=== PATIENT | male | born 2000 | race Two or more races ===

== ENCOUNTER 2020-05-14 05:38 | Emergency (ER) | payer OTHER, SELFPAY ==
--- NOTE | 2020-05-14 | CT_ITS ---
EXAMINATION: CT ABDOMEN AND PELVIS WITH CONTRAST CLINICAL INFORMATION: Pain. Recent appendectomy, 9 days ago, excision on left. Assess for infection. COMPARISON: Report CT abdomen and pelvis 05/04/2020, images unavailable. TECHNIQUE: Multidetector volumetric imaging was performed from the superior aspect of the liver through the pubic symphysis following administration of 85 mL Optiray 320 intravenous contrast. Sagittal and coronal reformatted images were obtained on the technologist workstation. No oral contrast. DOSE LOWERING TECHNIQUES: This CT examination was performed using dose optimization techniques as appropriate, variously including the following: *Automated exposure control *Adjustment of mA and/or kV according to patient size (this includes techniques or standardized protocols for targeted exams where dose is matched to indication/reason for exam; i.e. extremities or head) *Use of iterative reconstruction technique DLP: 749 mGy-cm FINDINGS: LUNG BASES: The visualized lung bases are unremarkable. LIVER, GALLBLADDER, AND BILIARY TREE: The liver is normal in size, shape, and attenuation. No focal hepatic lesion or biliary ductal dilatation is present. The gallbladder is unremarkable with no evidence of radiopaque gallstones, gallbladder wall thickening, or obvious pericholecystic inflammatory changes. PANCREAS: Unremarkable. SPLEEN: Unremarkable. ADRENAL GLANDS: Unremarkable. KIDNEYS AND URETERS: The kidneys are normal in size, shape, and attenuation. No hydronephrosis, hydroureter, or calculi seen. No perinephric stranding. BLADDER: Unremarkable. GASTROINTESTINAL TRACT: Patient is status post recent appendectomy. There is no bowel obstruction or inflammatory changes in the bowel or mesentery. No abdominal or pelvic ascites or intraperitoneal fluid collection. ABDOMINAL WALL: There is a heterogeneous collection involving the left anterior abdominal wall just below level of the umbilicus and extending into the subcutaneous space. Overall dimensions are approximately 4.4 x 5.2 x 4.8 cm. There are some punctate gas bubbles within the collection. The margins are regular, no mature surrounding wall. There is induration and stranding in the subcutaneous soft tissues and mild skin thickening. No hernia. LYMPH NODES: No lymphadenopathy. VASCULAR: Unremarkable. PELVIC VISCERA: Unremarkable. OSSEOUS STRUCTURES: Unremarkable. IMPRESSION: 1. Heterogeneous collection involving the left anterior abdominal wall and extending into the subcutaneous space measuring 4.4 x 5.2 x 4.8 cm with some internal punctate gas bubbles. This may represent abscess or infected hematoma. No intraperitoneal extension. 2. Status post recent appendectomy. No bowel obstruction or inflammatory changes in bowel or mesentery. No ascites or intraperitoneal fluid collection.
[2020-05-14 05:40] VITALS: BP 107/80; PULSE 123; RESP 20; TEMP 38.2; O2SAT 95; BMI 33.0
[2020-05-14 05:50] VITALS: BP 107/80; PULSE 128; RESP 20; TEMP 38.2; O2SAT 96; BMI 33.0
--- NOTE | 2020-05-14 05:55 | ECG_ITS ---
Test Reason : SEPSIS WORKUP Blood Pressure : / mmHG Vent. Rate : 111 BPM Atrial Rate : 111 BPM P-R Int : 114 ms QRS Dur : 094 ms QT Int : 304 ms P-R-T Axes : 062 057 019 degrees QTc Int : 413 ms Sinus tachycardia Otherwise normal ECG No previous ECGs available Referred By: Fadi Shetty Electronically Signed By:SMILEY MARTINEZ
--- NOTE | 2020-05-14 06:00 | ED.ABDPAIN ---
HPI - Abdominal Pain General Chief Complaint: Abdominal Pain <Fadi Shetty MD - Last Filed: 05/14/20 07:10> Stated Complaint: POST SURGERY ABD PAIN <Fadi Shetty MD - Last Filed: 05/14/20 07:10> Time Seen by Provider: 05/14/20 05:55 <Fadi Shetty MD - Last Filed: 05/14/20 07:10> Source: patient <Fadi Shetty MD - Last Filed: 05/14/20 07:10> Mode of arrival: ambulatory <Fadi Shetty MD - Last Filed: 05/14/20 07:10> Limitations: no limitations <Fadi Shetty MD - Last Filed: 05/14/20 07:10> History of Present Illness HPI narrative: Patient had laproscopic appendectomy, now with abdominal swelling and pain <Fadi Shetty MD - Last Filed: 05/14/20 07:10> MD elicited complaint: abdominal pain <Fadi Shetty MD - Last Filed: 05/14/20 07:10> Onset (ago): day(s) <Fadi Shetty MD - Last Filed: 05/14/20 07:10> Pain Consistency: constant <Fadi Shetty MD - Last Filed: 05/14/20 07:10> Location: LLQ <Fadi Shetty MD - Last Filed: 05/14/20 07:10> Severity: severe <Fadi Shetty MD - Last Filed: 05/14/20 07:10> Quality: stabbing <Fadi Shetty MD - Last Filed: 05/14/20 07:10> Associated symptoms: nausea, fever and chills <Fadi Shetty MD - Last Filed: 05/14/20 07:10> Related Data Home Medications: Previous Rx's Medication Instructions Recorded cephalexin 500 mg PO Q8H 7 Days #21 cap 05/14/20 doxycycline hyclate 100 mg PO BID 10 Days #20 cap 05/14/20 hydrocodone-acetaminophen 1 tab PO Q6H PRN #14 tab 05/14/20 ondansetron 4 mg PO Q8H PRN 5 Days #20 tab 05/14/20 <Fadi Shetty MD - Last Filed: 05/14/20 07:10> Allergies/Adverse Reactions: Allergies Allergy/AdvReac Type Severity Reaction Status Date / Time No Known Allergies Allergy Unverified 04/30/20 16:47 <Fadi Shetty MD - Last Filed: 05/14/20 07:10> Review of Systems Review of Systems Yes all other systems are reviewed and are negative <Fadi Shetty MD - Last Filed: 05/14/20 07:10> Physical Exam Vital Signs and I&O and Narrative: Vital Signs and I&O: Vital Signs Temp 99.3 F 05/14/20 07:31 Pulse 87 05/14/20 10:07 Resp 16 05/14/20 10:07 BP 124/68 05/14/20 10:07 Pulse Ox 98 05/14/20 10:07 Intake & Output 05/13/20 05/14/20 05/14/20 18:59 06:59 18:59 Intake Total 3098.15 / 3098.15 Balance 3098.15 / 3098.15 Weight 101.605 kg Intake: Intake, IV Amoun t 3098.15 / 3098.15 0.9 % Sodium C hloride 3,048.15 3048.15 / 3048.15 ml @ 3048.15 m ls/hr IV .Q1H ONE Rx#:[id number] Piperacillin S odium/Tazobactam 50 / 50 3.375 gm In 0. 9 % Sodium Chloride 50 ml @ 100 mls/hr IV ONCE ONE Rx#:[id number] Body Mass Index 33.0 <Fadi Shetty MD - Last Filed: 05/14/20 07:10> Vital Signs and I&O: Vital Signs Temp 99.3 F 05/14/20 07:31 Pulse 87 05/14/20 10:07 Resp 16 05/14/20 10:07 BP 124/68 05/14/20 10:07 Pulse Ox 98 05/14/20 10:07 Intake & Output 05/13/20 05/14/20 05/14/20 18:59 06:59 18:59 Intake Total 3098.15 / 3098.15 Balance 3098.15 / 3098.15 Weight 101.605 kg Intake: Intake, IV Amoun t 3098.15 / 3098.15 0.9 % Sodium C hloride 3,048.15 3048.15 / 3048.15 ml @ 3048.15 m ls/hr IV .Q1H ONE Rx#:[id number] Piperacillin S odium/Tazobactam 50 / 50 3.375 gm In 0. 9 % Sodium Chloride 50 ml @ 100 mls/hr IV ONCE ONE Rx#:[id number] Body Mass Index 33.0 <Sandra Yusuf DO - Last Filed: 05/14/20 12:03> Const: General: cooperative <Fadi Shetty MD - Last Filed: 05/14/20 07:10> Nutritional Appearance: obese <Fadi Shetty MD - Last Filed: 05/14/20 07:10> Orientation/consciousness: patient oriented x3 <Fadi Shetty MD - Last Filed: 05/14/20 07:10> Limitations: no limitations <Fadi Shtety MD - Last Filed: 05/14/20 07:10> HENMT: Head: Yes normal to inspection <Fadi Shetty MD - Last Filed: 05/14/20 07:10> Ears: external ears normal <Fadi Shetty MD - Last Filed: 05/14/20 07:10> General nose exam: Normal external nose present <Fadi Shetty MD - Last Filed: 05/14/20 07:10> Mouth: Normal oral and palatal mucosa present <Fadi Shetty MD - Last Filed: 05/14/20 07:10> Neck: Neck: Yes normal visual inspection and Yes full ROM <Fadi Shetty MD - Last Filed: 05/14/20 07:10> Chest: Chest palpation & inspection: normal inspection of the chest <Fadi Shetty MD - Last Filed: 05/14/20 07:10> Resp: Effort & Inspection: normal respiratory effort <Fadi Shetty MD - Last Filed: 05/14/20 07:10> Auscultation: clear to auscultation bilaterally <Fadi Shetty MD - Last Filed: 05/14/20 07:10> Cardio: Rate: tachycardic <Fadi Shetty MD - Last Filed: 05/14/20 07:10> Heart sounds: S1 normal heart sound present and S2 normal heart sound present <Fadi Shetty MD - Last Filed: 05/14/20 07:10> GI: Inspection: Yes other (swelling in the left lower quadrant with erythema) <Fadi Shetty MD - Last Filed: 05/14/20 07:10> Palpation (GI): Firmness to palpation present (GI) (firm mass left lower with extreme tenderness) <Fadi Shetty MD - Last Filed: 05/14/20 07:10> : General: Yes no CVA tenderness <Fadi Shetty MD - Last Filed: 05/14/20 07:10> Back/Spine/Pelvis: Back: no CVA tenderness <Fadi Shetty MD - Last Filed: 05/14/20 07:10> Skin: Other: slight erythema left lower quadrant <Fadi Shetty MD - Last Filed: 05/14/20 07:10> Neuro: General: patient oriented x3 <Fadi Shetty MD - Last Filed: 05/14/20 07:10> Motor exam (neuro): 5/5 motor strength present throughout <Fadi Shetty MD - Last Filed: 05/14/20 07:10> Extrem: General: Yes normal to inspection <Fadi Shetty MD - Last Filed: 05/14/20 07:10> Psych: Mental Status: mental status grossly normal <Fadi Shetty MD - Last Filed: 05/14/20 07:10> Course Course Hospital Course: sign out received pending CT scan and surgery evaluation by Dr. Oneill <Fadi Shetty MD - Last Filed: 05/14/20 07:10> Reevaluation(s) Reevaluation #1: Discussed with Dr. Wright will come and see patient <Fadi Shetty MD - Last Filed: 05/14/20 07:10> I/D at bedside per Dr. Sarah araujo to send home start on antibiotics <Sandra Yusuf DO - Last Filed: 05/14/20 12:03> Time: 07:09 <Fadi Shetty MD - Last Filed: 05/14/20 07:10> Reevaluation #2: signed out to Dr. Yusuf <Fadi Shetty MD - Last Filed: 05/14/20 07:10> Time: 07:09 <Fadi Shetty MD - Last Filed: 05/14/20 07:10> MDM - Abdominal Pain Lab Data Result diagrams: : 05/14/20 06:17 05/14/20 06:17 <Fadi Shetty MD - Last Filed: 05/14/20 07:10> Labs: Lab Results 05/14/20 05/14/20 05/14/20 Range/Units 06:17 06:17 06:17 WBC 12.6 H (4.8-10.8) X10*3/uL RBC 5.72 (4.60-5.80) X10*6/uL Hgb 14.9 (14.0-18.0) g/dl Hct 44.9 (42-52) % MCV 78.5 L (80-98) fL MCH 26.0 L (27.0-33.0) pg MCHC 33.2 (31.0-36.0) g/dl RDW 13.0 (11.0-16.0) % Plt Count 249 (160-400) X10*3/uL MPV 11.2 (9.4-12.4) fL Immature Gran % (Auto) 0.6 H (0.0-0.4) % Neut % (Auto) 77.7 H (45-73) % Lymph % (Auto) 9.5 L (20-40) % [place] % (Auto) 11.9 H (2-11) % Eos % (Auto) 0.1 (0-4) % Baso % (Auto) 0.2 (0-2) % Neut # (Auto) 9.8 H (2.0-8.3) X10*3/uL Lymph # (Auto) 1.2 (1.2-4.9) X10*3/uL [place] # (Auto) 1.5 H (0.1-1.2) X10*3/uL Eos # (Auto) 0.0 (0.0-0.4) X10*3/uL Baso # (Auto) 0.0 (0.0-0.2) X10*3/uL Abs Immat Gran (auto) 0.07 H (0.00-0.03) X10*3/uL Absolute Nucleated RBC 0.000 (0.0-0.012) X10*3/uL Nucleated RBC % (auto) 0.0 (0.0-0.2) /100WBC PT 17.0 H (10.8-13.0) SEC INR 1.4 H (0.9-1.1) APTT 39.0 H (24.1-38.0) SEC Sodium 135 (135-145) mmol/L Potassium 4.3 (3.3-5.1) mmol/l Chloride 99 (96-108) mmol/L Carbon Dioxide 25 (22-29) mmol/L Anion Gap 15 (12-20) BUN 11 (9-16) mg/dL Creatinine 1.04 (0.5-1.4) mg/dL Estim Creat Clear Calc 132.0 Estimated GFR > 60 Random Glucose 96 (60-115) mg/dL Lactic Acid (0.5-2.0) mmol/L Calcium 8.9 (8.4-10.2) mg/dL Total Bilirubin 1.1 H (0.0-1.0) mg/dL Direct Bilirubin 0.4 (0.0-0.5) mg/dL AST 17 (5-37) U/L ALT 18 (0-40) U/L Alkaline Phosphatase 64 (39-117) U/L Total Protein 7.2 (6.5-8.0) g/dL Albumin 4.1 (3.5-5.0) g/dL 05/14/20 Range/Units 06:17 WBC (4.8-10.8) X10*3/uL RBC (4.60-5.80) X10*6/uL Hgb (14.0-18.0) g/dl Hct (42-52) % MCV (80-98) fL MCH (27.0-33.0) pg MCHC (31.0-36.0) g/dl RDW (11.0-16.0) % Plt Count (160-400) X10*3/uL MPV (9.4-12.4) fL Immature Gran % (Auto) (0.0-0.4) % Neut % (Auto) (45-73) % Lymph % (Auto) (20-40) % [place] % (Auto) (2-11) % Eos % (Auto) (0-4) % Baso % (Auto) (0-2) % Neut # (Auto) (2.0-8.3) X10*3/uL Lymph # (Auto) (1.2-4.9) X10*3/uL [place] # (Auto) (0.1-1.2) X10*3/uL Eos # (Auto) (0.0-0.4) X10*3/uL Baso # (Auto) (0.0-0.2) X10*3/uL Abs Immat Gran (auto) (0.00-0.03) X10*3/uL Absolute Nucleated RBC (0.0-0.012) X10*3/uL Nucleated RBC % (auto) (0.0-0.2) /100WBC PT (10.8-13.0) SEC INR (0.9-1.1) APTT (24.1-38.0) SEC Sodium (135-145) mmol/L Potassium (3.3-5.1) mmol/l Chloride (96-108) mmol/L Carbon Dioxide (22-29) mmol/L Anion Gap (12-20) BUN (9-16) mg/dL Creatinine (0.5-1.4) mg/dL Estim Creat Clear Calc Estimated GFR Random Glucose (60-115) mg/dL Lactic Acid 1.0 (0.5-2.0) mmol/L Calcium (8.4-10.2) mg/dL Total Bilirubin (0.0-1.0) mg/dL Direct Bilirubin (0.0-0.5) mg/dL AST (5-37) U/L ALT (0-40) U/L Alkaline Phosphatase (39-117) U/L Total Protein (6.5-8.0) g/dL Albumin (3.5-5.0) g/dL <Fadi Shetty MD - Last Filed: 05/14/20 07:10> Lab Results 05/14/20 05/14/20 05/14/20 Range/Units 06:17 06:17 06:17 WBC 12.6 H (4.8-10.8) X10*3/uL RBC 5.72 (4.60-5.80) X10*6/uL Hgb 14.9 (14.0-18.0) g/dl Hct 44.9 (42-52) % MCV 78.5 L (80-98) fL MCH 26.0 L (27.0-33.0) pg MCHC 33.2 (31.0-36.0) g/dl RDW 13.0 (11.0-16.0) % Plt Count 249 (160-400) X10*3/uL MPV 11.2 (9.4-12.4) fL Immature Gran % (Auto) 0.6 H (0.0-0.4) % Neut % (Auto) 77.7 H (45-73) % Lymph % (Auto) 9.5 L (20-40) % [place] % (Auto) 11.9 H (2-11) % Eos % (Auto) 0.1 (0-4) % Baso % (Auto) 0.2 (0-2) % Neut # (Auto) 9.8 H (2.0-8.3) X10*3/uL Lymph # (Auto) 1.2 (1.2-4.9) X10*3/uL [place] # (Auto) 1.5 H (0.1-1.2) X10*3/uL Eos # (Auto) 0.0 (0.0-0.4) X10*3/uL Baso # (Auto) 0.0 (0.0-0.2) X10*3/uL Abs Immat Gran (auto) 0.07 H (0.00-0.03) X10*3/uL Absolute Nucleated RBC 0.000 (0.0-0.012) X10*3/uL Nucleated RBC % (auto) 0.0 (0.0-0.2) /100WBC PT 17.0 H (10.8-13.0) SEC INR 1.4 H (0.9-1.1) APTT 39.0 H (24.1-38.0) SEC Sodium 135 (135-145) mmol/L Potassium 4.3 (3.3-5.1) mmol/l Chloride 99 (96-108) mmol/L Carbon Dioxide 25 (22-29) mmol/L Anion Gap 15 (12-20) BUN 11 (9-16) mg/dL Creatinine 1.04 (0.5-1.4) mg/dL Estim Creat Clear Calc 132.0 Estimated GFR > 60 Random Glucose 96 (60-115) mg/dL Lactic Acid (0.5-2.0) mmol/L Calcium 8.9 (8.4-10.2) mg/dL Total Bilirubin 1.1 H (0.0-1.0) mg/dL Direct Bilirubin 0.4 (0.0-0.5) mg/dL AST 17 (5-37) U/L ALT 18 (0-40) U/L Alkaline Phosphatase 64 (39-117) U/L Total Protein 7.2 (6.5-8.0) g/dL Albumin 4.1 (3.5-5.0) g/dL 05/14/20 Range/Units 06:17 WBC (4.8-10.8) X10*3/uL RBC (4.60-5.80) X10*6/uL Hgb (14.0-18.0) g/dl Hct (42-52) % MCV (80-98) fL MCH (27.0-33.0) pg MCHC (31.0-36.0) g/dl RDW (11.0-16.0) % Plt Count (160-400) X10*3/uL MPV (9.4-12.4) fL Immature Gran % (Auto) (0.0-0.4) % Neut % (Auto) (45-73) % Lymph % (Auto) (20-40) % [place] % (Auto) (2-11) % Eos % (Auto) (0-4) % Baso % (Auto) (0-2) % Neut # (Auto) (2.0-8.3) X10*3/uL Lymph # (Auto) (1.2-4.9) X10*3/uL [place] # (Auto) (0.1-1.2) X10*3/uL Eos # (Auto) (0.0-0.4) X10*3/uL Baso # (Auto) (0.0-0.2) X10*3/uL Abs Immat Gran (auto) (0.00-0.03) X10*3/uL Absolute Nucleated RBC (0.0-0.012) X10*3/uL Nucleated RBC % (auto) (0.0-0.2) /100WBC PT (10.8-13.0) SEC INR (0.9-1.1) APTT (24.1-38.0) SEC Sodium (135-145) mmol/L Potassium (3.3-5.1) mmol/l Chloride (96-108) mmol/L Carbon Dioxide (22-29) mmol/L Anion Gap (12-20) BUN (9-16) mg/dL Creatinine (0.5-1.4) mg/dL Estim Creat Clear Calc Estimated GFR Random Glucose (60-115) mg/dL Lactic Acid 1.0 (0.5-2.0) mmol/L Calcium (8.4-10.2) mg/dL Total Bilirubin (0.0-1.0) mg/dL Direct Bilirubin (0.0-0.5) mg/dL AST (5-37) U/L ALT (0-40) U/L Alkaline Phosphatase (39-117) U/L Total Protein (6.5-8.0) g/dL Albumin (3.5-5.0) g/dL <Sandra Yusuf DO - Last Filed: 05/14/20 12:03> ECG Data Attestation: I personally reviewed and interpreted this ECG as follows: (sinus tachycardia rate 110, no st or twave changes) <Fadi Shetty MD - Last Filed: 05/14/20 07:10> Discharge Plan Discharge Clinical Impression: Abscess <Fadi Shetty MD - Last Filed: 05/14/20 07:10> Patient Disposition: Home, Self-Care <Fadi Shetty MD - Last Filed: 05/14/20 07:10> Instructions: Abscess (ED) <Fadi Shetty MD - Last Filed: 05/14/20 07:10> Prescriptions: New cephalexin 500 mg capsule 500 mg PO Q8H 7 Days Qty: 21 RF: 0 doxycycline hyclate 100 mg capsule 100 mg PO BID 10 Days Qty: 20 RF: 0 hydrocodone-acetaminophen 5-325 mg tablet 1 tab PO Q6H PRN (Reason: pain) Qty: 14 RF: 0 ondansetron 4 mg tablet,disintegrating 4 mg PO Q8H PRN (Reason: nausea and vomiting) 5 Days Qty: 20 RF: 0 <Fadi Shetty MD - Last Filed: 05/14/20 07:10> Referrals: Vikram Smith MD [Physician] - 05/18/20 <Fadi Shetty MD - Last Filed: 05/14/20 07:10> Stand Alone Forms: Work/School Release <Fadi Shetty MD - Last Filed: 05/14/20 07:10> [facility] Past Medical History Medical History: Medical History (Updated 05/14/20 @ 11:57 by Sandra Yusuf DO) Appendicitis <Fadi Shetty MD - Last Filed: 05/14/20 07:10> Social History Social History: Social History Alcohol intake: former Smoking Status: Former smoker Use of substances other than those prescribed or required for medical reasons: No Advance Directives: No Advance Directives Information Provided: No <Fadi Shetty MD - Last Filed: 05/14/20 07:10>
[2020-05-14 06:18] VITALS: BP 125/87; PULSE 116; RESP 10; TEMP 39.6; O2SAT 97
[2020-05-14 06:33] LABS: MANUAL DIFF FLAG NO
[2020-05-14] MEDS: Acetaminophen 325 MG TABLET 650 MG PO (06:35)
[2020-05-14] MEDS: Morphine Sulfate 4 MG/ML CARTRIDGE IVPUSH (06:35)
[2020-05-14 06:44] LABS: Basophils Percent Auto 0.2 % (0-2); Eosinophils Percent Auto 0.1 % (0-4); Hematocrit 44.9 % (42-52); Hemoglobin 14.9 g/dl (14.0-18.0); Imm Gran Abs Auto 0.07 X10*3/uL (0.00-0.03); Imm Gran Pct Auto 0.6 % (0.0-0.4); Lymphocytes Absolute Auto 1.2 X10*3/uL (1.2-4.9); Lymphocytes Percent Auto 9.5 % (20-40); Mean Corpuscular HGB Conc 33.2 g/dl (31.0-36.0); Mean Corpuscular Volume 78.5 fL (80-98); Mean Platelet Volume 11.2 fL (9.4-12.4); Monocytes Absolute Auto 1.5 X10*3/uL (0.1-1.2); Monocytes Percent Auto 11.9 % (2-11); Neutrophils Absolute Auto 9.8 X10*3/uL (2.0-8.3); Neutrophils Percent Auto 77.7 % (45-73); Platelet Count 249 X10*3/uL (160-400); Red Blood Count 5.72 X10*6/uL (4.60-5.80); White Blood Count 12.6 X10*3/uL (4.8-10.8)
[2020-05-14 06:51] LABS: INTERNATIONAL NORM RATIO 1.4 (0.9-1.1)
[2020-05-14 07:03] LABS: Alanine Aminotransferase 18 U/L (0-40); Albumin Level 4.1 g/dL (3.5-5.0); Alkaline Phosphatase 64 U/L (39-117); Anion Gap 15 (12-20); Aspartate Amino Transferase 17 U/L (5-37); Bilirubin Direct 0.4 mg/dL (0.0-0.5); Bilirubin Total 1.1 mg/dL (0.0-1.0); Blood Urea Nitrogen 11 mg/dL (9-16); Calcium 8.9 mg/dL (8.4-10.2); Carbon Dioxide 25 mmol/L (22-29); Chloride 99 mmol/L (96-108); Estimated Glomerular Filt Rate > 60; Glucose Random 96 mg/dL (60-115); Potassium 4.3 mmol/l (3.3-5.1); Sodium 135 mmol/L (135-145); Total Protein 7.2 g/dL (6.5-8.0)
[2020-05-14 07:31] VITALS: BP 124/64; PULSE 110; RESP 18; TEMP 37.4; O2SAT 96
[2020-05-14] MEDS: Piperacillin Sodium/Tazobactam 3.375 GM in 0.9 % Sodium Chloride 50 ML IV (07:40)
--- NOTE | 2020-05-14 07:47 | PC.NURSE ---
RECIVED REPORT FROM [facility]. PT ALERT AND ORIENTED X4. SKIN WPR. RESPIRATIONS EVEN AND NON LABORED. REPORTS DECREASE IN PAIN FROM 10/10 TO 6/10 POST MORPHINE. PAIN AT SITE OF LAPROSCOPIC INCISION, AT LLQ; AREA HOT AND TENDER TO TOUCH. 2ND L/3,084 ML NS INFUSING. (UNABLE TO CHANGE INFUSION RATE/ FINISH TIME IN OCT) ABX ALSO INFUSING. AWAITING CT AND LAB RESULTS.
[2020-05-14 08:29] VITALS: BP 128/62; PULSE 96
--- NOTE | 2020-05-14 08:31 | PC.NURSE ---
3,048ML NS NOW FINISHED INFUSING. 2 SETS B/P WITHIN LAST HOUR COMPLETE PER [facility]IS PROTOCOL.
--- NOTE | 2020-05-14 09:18 | PC.NURSE ---
EKG DONE BY [facility] [id number] AT 0555.
[2020-05-14] MEDS: iohexoL 350 MG/ML 100 ML INFUS..BTL IV (09:21)
[2020-05-14 10:07] VITALS: BP 124/68; PULSE 87; RESP 16; O2SAT 98
[2020-05-14] MEDS: HYDROmorphone HCl 1 MG/ML SYRINGE IVPUSH (11:21)
== END 2020-05-14 12:46 | disposition home or self-care (01) ==
PROVIDERS: Emergency Medicine; Emergency Provider Emergency Medicine; PCP Pediatrics
DX: T81.49XA Infection following a procedure, other surgical site, initial encounter (principal); L02.211 Cutaneous abscess of abdominal wall; R10.32 Left lower quadrant pain
CPT/HCPCS: 36415; 74177; 80048; 80076; 83605; 85025; 85610; 85730; 87040; 87147; 93005; 93010; 96361; 96374; 96375; 99285; J1170; J2270; J2543

== ENCOUNTER → 2020-05-20 09:45 | Outpatient (BNVA) | payer OTHER, SELFPAY | PROVIDERS: PCP Pediatrics; Referring Provider Pediatrics; Visit Provider Surgery | DX: T81.41XD Infection following a procedure, superficial incisional surgical site, subsequent encounter (principal) | CPT/HCPCS: 99024; 99212 ==

== ENCOUNTER 2020-07-14 06:21 | Outpatient (REF) | payer OTHER, SELFPAY | END 2020-07-14 06:22 | disposition home or self-care (01) | LOC: HO.LAB 06:21 | PROVIDERS: PCP Pediatrics; Visit Provider Internal Medicine | DX: Z20.828 Contact with and (suspected) exposure to other viral communicable diseases (principal) | CPT/HCPCS: C9803; U0003 ==

== ENCOUNTER 2021-07-10 22:20 | Emergency (ER) | payer OTHER, SELFPAY ==
[2021-07-10 22:25] VITALS: BP 144/91; PULSE 88; RESP 15; TEMP 36.9; O2SAT 99; BMI 33.2
--- NOTE | 2021-07-10 22:52 | ED.SKABFB ---
HPI - Skin/Abscess/Foreign Bdy General Chief complaint: Skin/Abscess/Foreign Body Stated complaint: ingrown toe nail Source: patient Mode of arrival: ambulatory Limitations: no limitations History of Present Illness HPI narrative: 20-year-old male presents with ingrown toenail to the left great toe for approximately 3 days. He presented today because he noted purulent drainage from the cuticle. Does not report any fevers or chills. MD complaint: other (Ingrown toenail) Onset (ago): day(s) (4) Tetanus up to date: no Location: L foot Severity: moderate Severity scale (1-10): 7 Quality: aching Pain Consistency: constant Relieving factors: none Exacerbating factors: palpation and movement Context: none Associated symptoms: denies other symptoms Treatments prior to arrival: attempted to drain pus at home Related Data Previous Rx's Medication Instructions Recorded cephalexin 500 mg capsule 500 mg PO Q8H 7 Days #21 cap 05/14/20 doxycycline hyclate 100 mg capsule 100 mg PO BID 10 Days #20 cap 05/14/20 hydrocodone 5 mg-acetaminophen 325 1 tab PO Q6H PRN #14 tab 05/14/20 mg tablet ondansetron 4 mg disintegrating 4 mg PO Q8H PRN 5 Days #20 tab 05/14/20 tablet amoxicillin 875 mg-potassium 1 tab PO Q12H 7 Days #14 tab 07/10/21 clavulanate 125 mg tablet (Augmentin) Allergies Allergy/AdvReac Type Severity Reaction Status Date / Time No Known Allergies Allergy Verified 07/10/21 22:30 Review of Systems Review of Systems: Constitutional: No Fever, No Chills ENT/Mouth: No Ear Pain, No Hoarseness, No sore throat Eyes: No Eye Pain, No Swelling, No Redness, No Foreign Body Cardiovascular: No Chest Pain, No SOB Respiratory: No Cough, No Dyspnea Gastrointestinal: No Nausea, No Vomiting, No Diarrhea, No abdominal Pain Genitourinary: No Dysuria, No Hematuria Musculoskeletal: positive left toe pain, No Myalgias, No Joint Swelling Skin: No Skin lacerations, No rash Neuro: No Weakness, No Numbness, No Paresthesias, No Loss of Consciousness, No Dizziness, No Headache Psych: No Anxiety/Panic, No Depression Heme/Lymph: no easy bruising, no Lymphadenopathy Endocrine: No Polyuria, No Polydipsia Yes all other systems are reviewed and are negative PMF Past Medical History Attestation statement: The following information was validated with the patient. Source: old records reviewed Medical History Appendicitis Surgical History History of incision and drainage (~04/2020) History of laparoscopic appendectomy (05/05/20) Social History Social History Alcohol intake: former Advance Directives: No Physical Exam Vital Signs: Vital Signs: Last Vital Signs Temp 98.5 F 07/10/21 22:25 Pulse 88 07/10/21 22:25 Resp 15 07/10/21 22:25 BP 144/91 H 07/10/21 22:25 Pulse Ox 99 07/10/21 22:25 Body Mass Index 33.2 Appearance: Alert. Oriented X3. No acute distress. Eyes: Pupils equal, round and reactive to light. ENT: Pharynx normal. Neck: Normal inspection. Neck supple. CVS: Normal heart rate and rhythm. Pulses normal. Respiratory: No respiratory distress. Breath sounds normal. Abdomen: Soft and nontender. Skin: Skin warm and dry. Normal skin color. Normal skin turgor. Extremities: Positive left toe paronychia with ingrown toenail Neuro: No motor deficit. No sensory deficit. Course Course Course Narrative: 20-year-old male presents with several days of left great toe ingrown toenail with paronychia. Will update Tdap, give Augmentin and removed toenail. Toenail removed without difficulty. Xeroform dressing placed. Patient will follow up with Podiatry, keep dressing in place as directed. Patient does stand on his feet all day, will give him 3 days off work. Patient does understand that he must continue antibiotics even though there is a dressing on his toe. Patient verbalized understanding of and agrees to plan of care discharge home. MDM - Skin/Abscess/Foreign Bdy MDM Narrative Medical decision making narrative: Ingrown toenail Medical Records Attestation: I reviewed the patient's medical records. Procedures Nerve Block Nerve Block 1: Local Anesthetic: lidocaine 2% Amount of anesthesia used (mL): 4 Side: left Nerve Blocks: digital Procedure Successful: Yes Patient Tolerated Procedure: well and no complications Complications: none Discharge Plan Discharge Clinical Impression: Ingrowing toenail of left foot Patient Disposition: Home, Self-Care Instructions: Ingrown Nail (ED), Partial Nail Avulsion for Ingrown Nail (DC) Additional Instructions: You were evaluated for left ingrown toenail. I removed a portion of your left great toenail. Please keep dressing in place for 3 days. Continue to take antibiotics Augmentin for the next 7 days. Please follow-up with Podiatry. Thank you for choosing this emergency department for evaluation. Please follow-up with primary care physician as needed. Return to the emergency department for any new, concerning, or worsening symptoms. Prescriptions: New amoxicillin-pot clavulanate [Augmentin] 875-125 mg tablet 1 tab PO Q12H 7 Days Qty: 14 RF: 0 No Action cephalexin 500 mg capsule 500 mg PO Q8H 7 Days Qty: 21 RF: 0 doxycycline hyclate 100 mg capsule 100 mg PO BID 10 Days Qty: 20 RF: 0 hydrocodone-acetaminophen 5-325 mg tablet 1 tab PO Q6H PRN (Reason: pain) Qty: 14 RF: 0 ondansetron 4 mg tablet,disintegrating 4 mg PO Q8H PRN (Reason: nausea and vomiting) 5 Days Qty: 20 RF: 0 Referrals: Vikram Falk [Physician] - 2 days (Ingrown toenail) Stand Alone Forms: Work/School Release Interventions: ED Discharge Assessment Last Done: 07/10/21 23:38 Discharge Date/Time: 07/10/21 23:40
[2021-07-10] MEDS: Lidocaine HCl 2 % MPF 5 ML VIAL SUBCUT (23:04)
[2021-07-10] MEDS: Amoxicillin/Potassium Clav 875 MG TABLET PO (23:04)
[2021-07-10] MEDS: Diphth,Pertus(ACell),Tet Adult 0.5 ML SYRINGE IM (23:12)
== END 2021-07-10 23:40 | disposition home or self-care (01) ==
PROVIDERS: Emergency Provider Internal Medicine
DX: L60.0 Ingrowing nail (principal); L03.032 Cellulitis of left toe
CPT/HCPCS: 11765; 90471; 90715; 99283; 99284

== ENCOUNTER 2021-07-11 07:20 | Emergency (ER) | payer OTHER, SELFPAY ==
[2021-07-11 07:31] VITALS: BP 146/80; PULSE 69; RESP 16; TEMP 36.6; O2SAT 97; BMI 33.2
--- NOTE | 2021-07-11 07:57 | ED.GENADULT ---
HPI - General Adult General Chief complaint: Wound/Laceration Stated complaint: L FOOT DRESSING CHANGE Time Seen by Provider: 07/11/21 07:57 Source: patient Mode of arrival: ambulatory Limitations: no limitations History of Present Illness HPI narrative: 20-year-old male status post left great toe ingrown nail removal last night, patient returned today for re-dressing the wound. Otherwise no other complaint. Patient yesterday had ingrown toe removal, started on antibiotic, updated on tetanus vaccination. Patient otherwise has no complaints. Related Data Previous Rx's Medication Instructions Recorded cephalexin 500 mg capsule 500 mg PO Q8H 7 Days #21 cap 05/14/20 doxycycline hyclate 100 mg capsule 100 mg PO BID 10 Days #20 cap 05/14/20 hydrocodone 5 mg-acetaminophen 325 1 tab PO Q6H PRN #14 tab 05/14/20 mg tablet ondansetron 4 mg disintegrating 4 mg PO Q8H PRN 5 Days #20 tab 05/14/20 tablet amoxicillin 875 mg-potassium 1 tab PO Q12H 7 Days #14 tab 07/10/21 clavulanate 125 mg tablet (Augmentin) Allergies Allergy/AdvReac Type Severity Reaction Status Date / Time No Known Allergies Allergy Verified 07/10/21 22:30 Review of Systems Review of Systems: Yes all other systems are reviewed and are negative PMFSH Past Medical History Medical History Appendicitis Surgical History History of incision and drainage (~04/2020) History of laparoscopic appendectomy (05/05/20) Social History Social History Alcohol intake: never Patient Tobacco Use Status: Current everyday Tobacco user Use of substances other than those prescribed or required for medical reasons: Yes Substance Use Type: Marijuana Advance Directives: No Advance Directives Information Provided: No Physical Exam Vital Signs: Vital Signs: Last Vital Signs Temp 98 F 07/11/21 07:31 Pulse 69 07/11/21 07:31 Resp 16 07/11/21 07:31 BP 146/80 H 07/11/21 07:31 Pulse Ox 97 07/11/21 07:31 Body Mass Index 33.2 Vital signs have been reviewed as appeared to be correct. Blood pressure normal. Heart rate normal. Respiration rate normal. Temperature normal. Oxygen saturation normal. Appearance: Alert. Oriented X3. No acute distress. Head: Normal external exam. Normocephalic. Atraumatic. No Garcia signs noted. No raccoon eyes noted Eyes: PERRLA. EOMI. Conjunctiva and sclera normal. Eyelids normal. ENT: TM's Normal. Pharynx normal. Uvula midline. Moist mucous membranes. No trismus noted. No drooling noted. No muffled voice noted. Neck: Normal inspection. Neck supple. FROM. No adenopathy. Thyroid Normal. No meningeal signs. No neck mass noted. CVS: Normal heart rate and rhythm. Heart sound normal. No murmurs noted. Pulses normal throughout. Respiratory: No respiratory distress. Painless inspiration. Breath sounds normal. No wheezes/rales/rhonchi noted. Chest nontender. No accessory muscle usage noted or decreased air movement noted. Abdomen: Soft and nontender. Bowel sounds normal in all 4 quadrants. No distention noted. No organomegaly noted. No visible injury noted. Back: No CVA tenderness. Full range of motion noted. Skin: Skin warm and dry. Normal skin color. Normal skin turgor. No rashes/lesions/lacerations noted. Extremities: Left great toe wound is dry and clean and intact. Neuro: Oriented X 3. Cranial nerve exam: II-XII are grossly intact No motor deficit. No sensory deficit. Reflexes normal. Course Course Course Narrative: Assessment and plan. 20-year-old male status post left great toe ingrown nail removal, patient had dressing change otherwise no complaint. Will discharge to continue with the plan of keeping the wound dry and clean and intact. Discharge Plan Discharge Clinical Impression: Ingrowing toenail of left foot, Visit for wound check Patient Disposition: Home, Self-Care Instructions: Nail Removal (ED) Prescriptions: No Action cephalexin 500 mg capsule 500 mg PO Q8H 7 Days Qty: 21 RF: 0 doxycycline hyclate 100 mg capsule 100 mg PO BID 10 Days Qty: 20 RF: 0 hydrocodone-acetaminophen 5-325 mg tablet 1 tab PO Q6H PRN (Reason: pain) Qty: 14 RF: 0 ondansetron 4 mg tablet,disintegrating 4 mg PO Q8H PRN (Reason: nausea and vomiting) 5 Days Qty: 20 RF: 0 amoxicillin-pot clavulanate [Augmentin] 875-125 mg tablet 1 tab PO Q12H 7 Days Qty: 14 RF: 0 Referrals: Physician,None [Primary Care Provider] - 2 days
== END 2021-07-11 08:11 | disposition home or self-care (01) ==
PROVIDERS: Emergency Provider Emergency Medicine
DX: Z48.01 Encounter for change or removal of surgical wound dressing (principal); L60.0 Ingrowing nail
CPT/HCPCS: 99283

== ENCOUNTER 2021-07-23 11:46 | Outpatient (REF) | payer OTHER, SELFPAY ==
[2021-07-23 16:58] LABS: COVID-19 Test Negative (Negative)
== END 2021-07-23 11:47 | disposition home or self-care (01) ==
LOC: HO.LAB 11:46
PROVIDERS: Visit Provider Internal Medicine
DX: Z20.822 Contact with and (suspected) exposure to COVID-19 (principal)
CPT/HCPCS: 36415; 87635; C9803

== ENCOUNTER 2021-07-23 12:03 | Emergency (ER) | payer OTHER, SELFPAY ==
--- NOTE | 2021-07-23 12:25 | ED_ITS ---
HPI - URI/Sore Throat General Chief Complaint: Upper Respiratory Symptoms <JAYANT Mike - Last Filed: 07/23/21 14:12> Stated Complaint: Covid testing <JAYANT Mike - Last Filed: 07/23/21 14:12> Time Seen by Provider: 07/23/21 12:16 <JAYANT Mike - Last Filed: 07/23/21 14:12> Source: patient <JAYANT Mike - Last Filed: 07/23/21 14:12> Mode of arrival: ambulatory <JAYANT Mike Last Filed: 07/23/21 14:12> Limitations: no limitations <JAYANT Mike Last Filed: 07/23/21 14:12> History of Present Illness HPI Narrative: 20-year-old male presents to the ER with sore throat and dry cough. He would like to be evaluated for COVID-19. He was recently he at with a friend who was diagnosed with COVID-19 today. He reports he has a mild dry cough and some sore throat that started yesterday. He has had no fevers, shortness of breath, dyspnea on exertion, headache or body aches. <JAYANT Mike - Last Filed: 07/23/21 14:12> MD elicited complaint: cough and sore throat <JAYANT Mike - Last Filed: 07/23/21 14:12> Onset (ago): day(s) (1) <JAYANT Mike Last Filed: 07/23/21 14:12> Consistency: intermittent <JAYANT Mike - Last Filed: 07/23/21 14:12> Severity: mild <JAYANT Mike Last Filed: 07/23/21 14:12> Description of mucous: clear <JAYANT Mike Last Filed: 07/23/21 14:12> Able to tolerate fluids by mouth: Yes <JAYANT Mike Last Filed: 07/23/21 14:12> Exacerbating factors: nothing <JAYANT Mike Last Filed: 07/23/21 14:12> Relieving factors: nothing <JAYANT Mike Last Filed: 07/23/21 14:12> Context: sick contacts <JAYANT Miek Last Filed: 07/23/21 14:12> Associated symptoms: nasal congestion, sore throat and cough <JAYANT Mike Last Filed: 07/23/21 14:12> Treatments prior to arrival: none <JAYANT Mike Last Filed: 07/23/21 14:12> Related Data Home Medications: Previous Rx's Medication Instructions Recorded cephalexin 500 mg capsule 500 mg PO Q8H 7 Days #21 cap 05/14/20 doxycycline hyclate 100 mg capsule 100 mg PO BID 10 Days #20 cap 05/14/20 hydrocodone 5 mg-acetaminophen 325 1 tab PO Q6H PRN #14 tab 05/14/20 mg tablet ondansetron 4 mg disintegrating 4 mg PO Q8H PRN 5 Days #20 tab 05/14/20 tablet amoxicillin 875 mg-potassium 1 tab PO Q12H 7 Days #14 tab 07/10/21 clavulanate 125 mg tablet (Augmentin) <JAYANT Mike Last Filed: 07/23/21 14:12> Allergies/Adverse Reactions: Allergies Allergy/AdvReac Type Severity Reaction Status Date / Time No Known Allergies Allergy Verified 07/10/21 22:30 <JAYANT Mike Last Filed: 07/23/21 14:12> Review of Systems Review of Systems: Constitutional: No Fever, No Chills ENT/Mouth: + sore throat, + Rhinorrhea, No Swallowing Difficulty Cardiovascular: No Chest Pain, No SOB Respiratory: No Cough, No Sputum, No Wheezing, No dyspnea Gastrointestinal: No Nausea, No Vomiting, No Diarrhea, No abdominal Pain Musculoskeletal: No joint pain, No Myalgias Skin: No Skin Lesions, No rash Neuro: No Dizziness, No Headache Psych: + Anxiety/Panic Heme/Lymph: No Lymphadenopathy <JAYANT Mike Last Filed: 07/23/21 14:12> [facility] Past Medical History Medical History: Medical History Appendicitis <JAYANT Mike Last Filed: 07/23/21 14:12> Surgical History: Surgical History History of incision and drainage (~04/2020) History of laparoscopic appendectomy (05/05/20) <JAYANT Mike - Last Filed: 07/23/21 14:12> Social History Social History: Social History Alcohol intake: never Patient Tobacco Use Status: Current everyday Tobacco user Substance Use Type: Marijuana Advance Directives: No Advance Directives Information Provided: No <JAYANT Mike - Last Filed: 07/23/21 14:12> Physical Exam Vital Signs: Vital Signs: Last Vital Signs Temp 98.3 F 07/23/21 12:26 Pulse 81 07/23/21 12:26 Resp 16 07/23/21 12:26 BP 140/79 H 07/23/21 12:26 Pulse Ox 98 07/23/21 12:26 BMI result Body Mass Index 32.5 <JAYANT Mike - Last Filed: 07/23/21 14:12> Vital Signs: Last Vital Signs Temp 98.3 F 07/23/21 12:26 Pulse 81 07/23/21 12:26 Resp 16 07/23/21 12:26 BP 140/79 H 07/23/21 12:26 Pulse Ox 98 07/23/21 12:26 BMI result Body Mass Index 32.5 <Edward Howard MD - Last Filed: 07/23/21 17:30> Appearance: Alert. Oriented X3. No acute distress. Eyes: Pupils equal, round and reactive to light. ENT: Pharynx with moist mucous membranes, posterior oropharynx with mild generalized erythema, no tonsillar swelling or exudate. Uvula midline. Tympanic members are normal bilaterally. Neck: Normal inspection. Neck supple. No lymphadenopathy CVS: Normal heart rate and rhythm. Pulses normal. Respiratory: No respiratory distress. Breath sounds normal. Abdomen: Soft and nontender. +BS x4 Skin: Skin warm and dry. Normal skin color. Normal skin turgor. No rashes. Extremities: No lower extremity edema. Neuro: Oriented X 3. Grossly normal <JAYANT Mike - Last Filed: 07/23/21 14:12> Course Course Course Narrative: 20-year-old male presents to the ER with a mild dry cough and sore throat for the last day. He has a known COVID-19 contact this last week. Exam is revealing for only some mild posterior or pharyngeal erythema without signs of strep throat. Will get a COVID and strep swabs. Patient has been counseled on need for close monitoring and surveillance for further COVID symptoms given his known exposure. <JAYANT Mike - Last Filed: 07/23/21 14:12> Reevaluation(s) Reevaluation #1: Patient negative for COVID and strep. Encouraged to get further testing early next week given his known exposure. At this time he is stable for discharge home with supportive care. <JAYANT Mike - Last Filed: 07/23/21 14:12> MDM - URI/Sore Throat Lab Data Labs: Lab Results 07/23/21 07/23/21 Range/Units 12:21 12:24 COVID-19 (GABBY) Negative (Negative) COVID-19 Clin Com See Note S. pyogenes GrpA LUPIS Negative (Negative) <JAYANT Mike - Last Filed: 07/23/21 14:12> Lab Results 07/23/21 07/23/21 Range/Units 12:21 12:24 COVID-19 (GABBY) Negative (Negative) COVID-19 Clin Com See Note S. pyogenes GrpA LUPIS Negative (Negative) <Edward Howard MD - Last Filed: 07/23/21 17:30> Discharge Plan Discharge Clinical Impression: Pharyngitis Qualifiers: Pharyngitis/tonsillitis etiology: unspecified etiology Qualified Code(s): J02.9 - Acute pharyngitis, unspecified <JAYANT Mike - Last Filed: 07/23/21 14:12> Patient Disposition: Home, Self-Care <JAYANT Mike - Last Filed: 07/23/21 14:12> Instructions: Pharyngitis (ED) <JAYANT Mike - Last Filed: 07/23/21 14:12> Additional Instructions: You were negative for COVID-19 as well as strep throat. Recommend warm saltwater gargles several times per day. Recommend [id number] Chloraseptic spray and or Cepacol lozenges as needed for sore throat. Given your known close contact COVID-19 recommend getting retested on Monday <JAYANT Mike - Last Filed: 07/23/21 14:12> Prescriptions: No Action cephalexin 500 mg capsule 500 mg PO Q8H 7 Days Qty: 21 RF: 0 doxycycline hyclate 100 mg capsule 100 mg PO BID 10 Days Qty: 20 RF: 0 hydrocodone-acetaminophen 5-325 mg tablet 1 tab PO Q6H PRN (Reason: pain) Qty: 14 RF: 0 ondansetron 4 mg tablet,disintegrating 4 mg PO Q8H PRN (Reason: nausea and vomiting) 5 Days Qty: 20 RF: 0 amoxicillin-pot clavulanate [Augmentin] 875-125 mg tablet 1 tab PO Q12H 7 Days Qty: 14 RF: 0 <JAYANT Mike - Last Filed: 07/23/21 14:12> Interventions: ED Discharge Assessment Last Done: 07/23/21 13:47 <JAYANT Mike - Last Filed: 07/23/21 14:12> Discharge Date/Time: 07/23/21 13:47 <JAYANT Mike - Last Filed: 07/23/21 14:12>
[2021-07-23 12:26] VITALS: BP 140/79; PULSE 81; RESP 16; TEMP 36.8; O2SAT 98; BMI 32.5
[2021-07-23 12:48] LABS: Strep A Nucleic Acid Negative (Negative)
[2021-07-23 13:02] LABS: COVID-19 Test Negative (Negative)
== END 2021-07-23 13:47 | disposition home or self-care (01) ==
PROVIDERS: Physician Assistant; Emergency Provider Emergency Medicine
DX: J02.9 Acute pharyngitis, unspecified (principal); Z20.822 Contact with and (suspected) exposure to COVID-19
CPT/HCPCS: 36415; 87635; 87651; 99283

== ENCOUNTER 2021-09-02 09:52 | Outpatient (REF) | payer OTHER, SELFPAY ==
[2021-09-02 10:10] LABS: COVID-19 Test Positive (Negative)
== END 2021-09-02 09:53 | disposition home or self-care (01) ==
LOC: HO.LAB 09:52
PROVIDERS: Visit Provider Internal Medicine
DX: Z20.822 Contact with and (suspected) exposure to COVID-19 (principal)
CPT/HCPCS: 87635; C9803

== ENCOUNTER 2021-09-09 08:48 | Outpatient (REF) | payer OTHER, SELFPAY ==
[2021-09-09 09:05] LABS: Binax Internal Control QC Valid; Binax Now Covid-19 Ag Negative (Negative)
== END 2021-09-09 08:49 | disposition home or self-care (01) ==
LOC: HO.LAB 08:48
PROVIDERS: Visit Provider Internal Medicine
DX: Z20.822 Contact with and (suspected) exposure to COVID-19 (principal)
CPT/HCPCS: C9803

== ENCOUNTER 2022-06-12 11:44 | Emergency (ER) | payer OTHER, SELFPAY ==
--- NOTE | ~2022-06-12 | CT_ITS ---
EXAMINATION: CT ABDOMEN AND PELVIS WITHOUT CONTRAST CLINICAL INFORMATION: Abdominal pain COMPARISON: CT of abdomen pelvis 05/14/2020 TECHNIQUE: Multidetector volumetric imaging was performed from the superior aspect of the liver through the pubic symphysis. Sagittal and coronal reformatted images were obtained on the technologist's workstation. This CT examination was performed using dose optimization techniques as appropriate, variously including the following: *Automated exposure control *Adjustment of mA and/or kV according to patient size (this includes techniques or standardized protocols for targeted exams where dose is matched to indication/reason for exam; i.e. extremities or head) *Use of iterative reconstruction technique DLP: 789 mGy-cm FINDINGS: LUNG BASES: Unremarkable. ABDOMINAL AND PELVIC WALL: Unremarkable. LIVER AND BILIARY TREE: Hypoattenuating hepatic parenchyma compatible with hepatic steatosis. GALLBLADDER: Unremarkable. PANCREAS: Unremarkable. SPLEEN: Spleen is enlarged measuring 13.8 cm in span. ADRENAL GLANDS: Unremarkable. KIDNEYS AND URETERS: Unremarkable. GASTROINTESTINAL TRACT: Colonic diverticulosis without evidence of diverticulitis. Appendix is not identified and may be surgically absent. VASCULAR: Unremarkable. LYMPH NODES/PERITONEUM: Few prominent nonpathologically enlarged right lower quadrant mesenteric node stable from 2020. No new or increasing lymphadenopathy. FREE FLUID: None. BLADDER: Urinary bladder is decompressed limiting evaluation. PELVIC VISCERA: Unremarkable. OSSEOUS STRUCTURES: Unremarkable. CT/CT abdomen pelvis wo IV con IMPRESSION: 1. No acute findings to explain symptoms of abdominal pain. 2. Hepatic steatosis. 3. Splenomegaly.
[2022-06-12 11:47] VITALS: BP 126/79; PULSE 102; RESP 20; TEMP 36.8; O2SAT 98; BMI 35.4
[2022-06-12 12:46] LABS: Influenza A PCR NEGATIVE (Negative); Influenza B PCR NEGATIVE (Negative); Resp Syncy Virus RNA Qual PCR NEGATIVE (Negative); SARS COV2 PCR INHOUSE NEGATIVE (Negative)
[2022-06-12 16:00] VITALS: BP 151/68; PULSE 93; RESP 20; TEMP 36.6; O2SAT 98
--- NOTE | 2022-06-12 16:48 | ED.GENADULT ---
HPI - General Adult General Chief complaint: Upper Respiratory Symptoms Stated complaint: body aches Time Seen by Provider: 06/12/22 15:54 Source: patient Mode of arrival: ambulatory Limitations: no limitations History of Present Illness HPI narrative: 21-year-old male presents to the ED for bodyaches, dry coughing for one week, fever and chills. Patient denies any chest pain or shortness of breath. Related Data Previous Rx's Medication Instructions Recorded cephalexin 500 mg capsule 500 mg PO Q8H 7 days #21 caps 05/14/20 doxycycline hyclate 100 mg capsule 100 mg PO BID 10 days #20 caps 05/14/20 hydrocodone 5 mg-acetaminophen 325 1 tab PO Q6H PRN pain #14 tabs 05/14/20 mg tablet ondansetron 4 mg disintegrating 4 mg PO Q8H PRN nausea and 05/14/20 tablet vomiting 5 days #20 tabs amoxicillin 875 mg-potassium 1 tab PO Q12H 7 days #14 tabs 07/10/21 clavulanate 125 mg tablet (Augmentin) albuterol sulfate 90 mcg/actuation 2 puff inhalation Q4-6H PRN 06/12/22 aerosol inhaler shortness of breath or wheezing #6.7 grams azithromycin 250 mg tablet See Rx Instructions PO .COMPLEX #6 06/12/22 tabs Allergies Allergy/AdvReac Type Severity Reaction Status Date / Time No Known Allergies Allergy Verified 07/10/21 22:30 Review of Systems Review of Systems: Dry cough, bodyaches, fever, and chills Yes all other systems are reviewed and are negative PMFSH Past Medical History Medical History Appendicitis Surgical History History of incision and drainage (~04/2020) History of laparoscopic appendectomy (05/05/20) Social History Social History Alcohol intake: never Patient Tobacco Use Status: Current everyday Tobacco user Substance Use Type: Marijuana Physical Exam ED Vital Signs: Vital Signs - 24 hr 06/12/22 11:47 06/12/22 16:00 Temperature 98.3 F 98 F Pulse Rate 102 H 93 Respiratory Rate 20 20 Blood Pressure 126/79 151/68 H Pulse Oximetry 98 98 Oxygen Delivery Method Room Air Room Air BMI result Body Mass Index 35.4 Const General: cooperative, healthy appearing, comfortable, no acute distress, well developed, alert and awake Orientation/consciousness: oriented to person, oriented to place, oriented to time and patient [facility]3 [facility]: Yes normal to inspection, Yes No palpable skull fracture present, Yes normocephalic, Yes atraumatic and No abrasion Ears: hearing grossly normal bilaterally, external ears normal, TM's normal bilaterally, EAC's normal, mastoids normal and no periauricular adenopathy Throat: Yes posterior oropharynx normal, Yes tonsils normal and Yes uvula midline Eyes General: appearance normal, both eyes and all related structures Neck Neck: Yes normal visual inspection, Yes full ROM, Yes no lymphadenopathy, Yes no meningeal signs, Yes trachea midline, Yes supple, No anterior neck swelling and No tender Chest Chest palpation & inspection: normal inspection of the chest and normal palpation of entire chest wall Resp Effort & Inspection: normal respiratory effort and able to speak in complete sentences Auscultation: clear to auscultation bilaterally Cardio Jugular venous distension: no JVD Heart sounds: S1 normal heart sound present and S2 normal heart sound present GI Inspection: Yes normal to inspection and No abdominal wall ecchymosis Palpation (GI): Soft to palpation, not firm, nontender, no guarding and not rigid General: No CVA tenderness and Yes no CVA tenderness Back/Spine/Pelvis Back: no CVA tenderness, No CVA tenderness and No back tenderness Skin General skin exam: no rashes or lesions noted and elasticity normal Neuro General: oriented to person, oriented to place, oriented to time, patient oriented x3, gait normal, tone normal, no meningeal signs and CN's II-XI intact bilaterally Extrem General: Yes normal to inspection and Yes full ROM Psych Appearance: grossly normal, well kempt and not disheveled Course Course Course Narrative: Patient vital signs stable. Reevaluation(s) Reevaluation #1: COVID RSV and influenza negative. Patient will be done with antibiotics albuterol inhaler diagnosis steroids. Patient given Toradol for pain and does Time: 16:58 Reevaluation #2: Patient refused to be discharged. Patient now stating he also has had abdominal pain for week. Patient did not inform me of this. Patient states described like sharp stabbing abdominal pain. Patient would like labs. Discharge cancelled. Patient does not have any abdominal tenderness but states he has pain.. Time: 17:44 Reevaluation #3: Patient CT scan came back normal. CT scan shows fatty liver. Lab shows some anemia slightly low platelets. Skin negative for any petechiae. Patient denies any rectal bleeding, black stool, coughing blood, or vomiting blood. Patient made aware of these findings and told to follow-up with PCP. Patient states history of drinking alcohol. Patient informed he needs to decrease his alcohol intake which is causing issues with his liver and could lead to anemia, low platelet counts and liver failure. Patient states he will cut down alcohol intake follow-up with primary care provider. Patient for necessity to follow up with business development recruiter. Urine negative for UTI Time: 19:32 Medical Decision Making MDM Narrative Medical decision making narrative: Bronchitis. Fatty liver Lab Data Result diagrams: 06/12/22 17:54 06/12/22 17:54 Labs: Lab Results 06/12/22 06/12/22 06/12/22 Range/Units 11:56 17:54 17:54 WBC 5.8 (4.8-10.8) X10*3/uL RBC 5.40 (4.60-5.80) X10*6/uL Hgb 13.5 L (14.0-18.0) g/dl Hct 40.7 L (42.0-52.0) % MCV 75.4 L (80.0-98.0) fL MCH 25.0 L (27.0-33.0) pg MCHC 33.2 (31.0-36.0) g/dl RDW 13.4 (11.0-16.0) % Plt Count 132 L (160-400) X10*3/uL MPV 11.1 (9.4-12.4) fL Immature Gran % (Auto) 0.2 (0.0-0.4) % Neut % (Auto) 79.2 H (45-73) % Lymph % (Auto) 13.3 L (20-40) % [place] % (Auto) 7.1 (2-11) % Eos % (Auto) 0.0 (0-4) % Baso % (Auto) 0.2 (0-2) % Lymph # (Auto) 0.8 L (1.2-4.9) X10*3/uL [place] # (Auto) 0.4 (0.1-1.2) X10*3/uL Eos # (Auto) 0.0 (0.0-0.4) X10*3/uL Baso # (Auto) 0.0 (0.0-0.2) X10*3/uL Abs Immat Gran (auto) 0.01 (0.00-0.03) X10*3/uL Absolute Neuts (auto) 4.6 (2.0-8.3) x10*3/uL Absolute Nucleated RBC 0.000 (0.0-0.012) X10*3/uL Nucleated RBC % (auto) 0.0 (0.0-0.2) /100WBC Sodium 138 (135-145) mmol/L Potassium 3.3 (3.3-5.1) mmol/L Chloride 102 (96-108) mmol/L Carbon Dioxide 24 (22-29) mmol/L Anion Gap 15 (12-20) BUN 10 (9-16) mg/dL Creatinine 0.84 (0.5-1.4) mg/dL Estim Creat Clear Calc 166.3 Estimated GFR > 60 Random Glucose 107 (60-115) mg/dL Calcium 8.9 (8.4-10.2) mg/dL Total Bilirubin 1.2 H (0.0-1.0) mg/dL AST 41 H D (5-37) U/L ALT 80 H (0-40) U/L Alkaline Phosphatase 92 D (39-117) U/L Total Protein 6.6 (6.5-8.0) g/dL Albumin 4.1 (3.5-5.0) g/dL Lipase 6 L (8-78) U/L Urine Color Urine Appearance Urine pH (5.0-9.0) Ur Specific [place] (1.005-1.025) Urine Protein (Neg-Trace) mg/dL Urine Glucose (UA) (Negative) mg/dL Urine Ketones (Negative) mg/dL Urine Blood (Negative) Urine Nitrite (Negative) Ur Leukocyte Esterase (Negative) Urine RBC (0-2) /HPF Urine WBC (0-5) /HPF Ur Squamous Epith Cells (0-2) /HPF Urine Bacteria (None Seen) Hyaline Casts (0-2) /LPF Influenza Type A (PCR) NEGATIVE (Negative) Influenza Type B (PCR) NEGATIVE (Negative) RSV RNA Qual (PCR) NEGATIVE (Negative) SARS-CoV-2 RNA (RT-PCR) NEGATIVE (Negative) 06/12/22 Range/Units 18:00 WBC (4.8-10.8) X10*3/uL RBC (4.60-5.80) X10*6/uL Hgb (14.0-18.0) g/dl Hct (42.0-52.0) % MCV (80.0-98.0) fL MCH (27.0-33.0) pg MCHC (31.0-36.0) g/dl RDW (11.0-16.0) % Plt Count (160-400) X10*3/uL MPV (9.4-12.4) fL Immature Gran % (Auto) (0.0-0.4) % Neut % (Auto) (45-73) % Lymph % (Auto) (20-40) % [place] % (Auto) (2-11) % Eos % (Auto) (0-4) % Baso % (Auto) (0-2) % Lymph # (Auto) (1.2-4.9) X10*3/uL [place] # (Auto) (0.1-1.2) X10*3/uL Eos # (Auto) (0.0-0.4) X10*3/uL Baso # (Auto) (0.0-0.2) X10*3/uL Abs Immat Gran (auto) (0.00-0.03) X10*3/uL Absolute Neuts (auto) (2.0-8.3) x10*3/uL Absolute Nucleated RBC (0.0-0.012) X10*3/uL Nucleated RBC % (auto) (0.0-0.2) /100WBC Sodium (135-145) mmol/L Potassium (3.3-5.1) mmol/L Chloride (96-108) mmol/L Carbon Dioxide (22-29) mmol/L Anion Gap (12-20) BUN (9-16) mg/dL Creatinine (0.5-1.4) mg/dL Estim Creat Clear Calc Estimated GFR Random Glucose (60-115) mg/dL Calcium (8.4-10.2) mg/dL Total Bilirubin (0.0-1.0) mg/dL AST (5-37) U/L ALT (0-40) U/L Alkaline Phosphatase (39-117) U/L Total Protein (6.5-8.0) g/dL Albumin (3.5-5.0) g/dL Lipase (8-78) U/L Urine Color Dark Yellow Urine Appearance Clear Urine pH 6.5 (5.0-9.0) Ur Specific [place] 1.025 (1.005-1.025) Urine Protein 30 (1+) H (Neg-Trace) mg/dL Urine Glucose (UA) Negative (Negative) mg/dL Urine Ketones >=160 (Negative) mg/dL Urine Blood Negative (Negative) Urine Nitrite Negative (Negative) Ur Leukocyte Esterase Trace H (Negative) Urine RBC 0-2 (0-2) /HPF Urine WBC 0-5 (0-5) /HPF Ur Squamous Epith Cells 3-5 (0-2) /HPF Urine Bacteria None Seen (None Seen) Hyaline Casts 0-2 (0-2) /LPF Influenza Type A (PCR) (Negative) Influenza Type B (PCR) (Negative) RSV RNA Qual (PCR) (Negative) SARS-CoV-2 RNA (RT-PCR) (Negative) Discharge Plan Discharge Clinical Impression: Bronchitis Patient Disposition: Home, Self-Care Instructions: Acute Bronchitis (ED), Non-Alcoholic Fatty Liver Disease (ED), Viral Syndrome (ED) Additional Instructions: Your COVID, influenza, and RSV came back negative. You will be treated as bronchitis and discharged albuterol inhaler and antibiotics. You also will be discharged with pain meds. Patient felt with primary care provider. Return to ED immediately any chest pain, shortness of breath, leg swelling, calf pain, coughing up blood, weakness, dizziness intractable fever abdominal pain, neck stiffness, photophobia, severe headache, or any other concerning symptoms. Please follow up [facility] PCP. You will need to follow-up with business development recruiter for fatty liver ( shown on CT scan). Prior liver disease can cause slight anemia and mild low platelet counts which is showed in the blood work. Prescriptions: New azithromycin 250 mg tablet See Rx Instructions .ROUTE .COMPLEX Qty: 6 0RF Rx Instructions: For 250 mg dose pack: take 500 mg today (day 1), then 250 mg for 4 days (days 2-5) albuterol sulfate 90 mcg/actuation HFA aerosol inhaler 2 puff inhalation Q4-6H PRN (Reason: shortness of breath or wheezing) Qty: 6.7 0RF No Action cephalexin 500 mg capsule 500 mg PO Q8H 7 Days Qty: 21 0RF doxycycline hyclate 100 mg capsule 100 mg PO BID 10 Days Qty: 20 0RF hydrocodone-acetaminophen 5-325 mg tablet 1 tab PO Q6H PRN (Reason: pain) Qty: 14 0RF ondansetron 4 mg tablet,disintegrating 4 mg PO Q8H PRN (Reason: nausea and vomiting) 5 Days Qty: 20 0RF amoxicillin-pot clavulanate [Augmentin] 875-125 mg tablet 1 tab PO Q12H 7 Days Qty: 14 0RF Referrals: [facility] [Provider Group] (Fatty liver disease. Slight anemia. Slight low platelets.) Stand Alone Forms: Work/School Release Interventions: ED Discharge Assessment Last Done: 06/12/22 19:51 Discharge Date/Time: 06/12/22 19:52 Print Language: Polish
[2022-06-12] MEDS: Ketorolac Tromethamine 30 MG/ML VIAL IM (17:34)
[2022-06-12 17:59] LABS: MANUAL DIFF FLAG NO
[2022-06-12 18:02] LABS: Basophils Percent Auto 0.2 % (0-2); Imm Gran Abs Auto 0.01 X10*3/uL (0.00-0.03); Imm Gran Pct Auto 0.2 % (0.0-0.4); PLT CLUMP 1; SCAN SMEAR FLAG 1
[2022-06-12 18:04] LABS: Hematocrit 40.7 % (42.0-52.0); Hemoglobin 13.5 g/dl (14.0-18.0); Lymphocytes Absolute Auto 0.8 X10*3/uL (1.2-4.9); Lymphocytes Percent Auto 13.3 % (20-40); Mean Corpuscular HGB Conc 33.2 g/dl (31.0-36.0); Mean Corpuscular Volume 75.4 fL (80.0-98.0); Mean Platelet Volume 11.1 fL (9.4-12.4); Monocytes Absolute Auto 0.4 X10*3/uL (0.1-1.2); Monocytes Percent Auto 7.1 % (2-11); Neutrophils Absolute Auto 4.6 x10*3/uL (2.0-8.3); Neutrophils Percent Auto 79.2 % (45-73); Red Cell Distribution Width 13.4 % (11.0-16.0)
[2022-06-12 18:05] LABS: Platelet Count 132 X10*3/uL (160-400); White Blood Count 5.8 X10*3/uL (4.8-10.8)
[2022-06-12 18:15] LABS: Alanine Aminotransferase 80 U/L (0-40); Albumin Level 4.1 g/dL (3.5-5.0); Alkaline Phosphatase 92 U/L (39-117); Anion Gap 15 (12-20); Aspartate Amino Transferase 41 U/L (5-37); Bilirubin Total 1.2 mg/dL (0.0-1.0); Blood Urea Nitrogen 10 mg/dL (9-16); Calcium 8.9 mg/dL (8.4-10.2); Carbon Dioxide 24 mmol/L (22-29); Chloride 102 mmol/L (96-108); Creatinine Clr Calc Pharmacy 166.3; Estimated Glomerular Filt Rate > 60; Glucose Random 107 mg/dL (60-115); Lipase 6 U/L (8-78); Potassium 3.3 mmol/L (3.3-5.1); Sodium 138 mmol/L (135-145); Total Protein 6.6 g/dL (6.5-8.0)
[2022-06-12 18:45] LABS: Appearance Urine Clear; Color Urine Dark Yellow; Glucose Urine UA Negative (Negative); Leukocyte Esterase Urine Trace (Negative); Nitrite Urine Negative (Negative); PH 6.5 (5.0-9.0); Specific Gravity - Urine 1.025 (1.005-1.025); UMIC TRIGGER UACC YES; Urine Blood Negative (Negative); Urine Ketones >=160 mg/dL (Negative); Urine Protein 30 (1+) mg/dL (Neg-Trace)
[2022-06-12 18:50] LABS: Bacteria Urine None Seen (None Seen); Hyaline Casts Urine 0-2 /LPF (0-2); RBC Urine 0-2 /HPF (0-2); WBC Urine 0-5 /HPF (0-5)
== END 2022-06-12 19:52 | disposition home or self-care (01) ==
PROVIDERS: Physician Assistant; Emergency Provider Emergency Medicine
DX: J40 Bronchitis, not specified as acute or chronic (principal); R10.9 Unspecified abdominal pain; K76.0 Fatty (change of) liver, not elsewhere classified; F17.200 Nicotine dependence, unspecified, uncomplicated; F12.90 Cannabis use, unspecified, uncomplicated; Z20.822 Contact with and (suspected) exposure to COVID-19; Z79.899 Other long term (current) drug therapy
CPT/HCPCS: 0241U; 36415; 74176; 80053; 81001; 83690; 85025; 96372; 99283; 99284; J1885

== ENCOUNTER 2022-06-13 08:15 | Emergency (ER) | payer OTHER, SELFPAY ==
[2022-06-13 08:19] VITALS: BP 114/72; PULSE 112; O2SAT 98
[2022-06-13 08:28] VITALS: BP 126/77; PULSE 101; RESP 19; TEMP 37.5; O2SAT 98; BMI 35.4
--- NOTE | 2022-06-13 11:47 | PC.NURSE ---
Pt not present in waiting room when called for reassessment.
== END 2022-06-13 12:02 | disposition left against medical advice (07) ==
PROVIDERS: Emergency Provider Emergency Medicine
DX: R10.9 Unspecified abdominal pain (principal)
CPT/HCPCS: 99281

== ENCOUNTER 2022-08-14 03:14 | Emergency (ER) | payer OTHER, SELFPAY ==
[2022-08-14 03:17] VITALS: BMI 25.7
[2022-08-14 03:29] VITALS: BP 146/105; PULSE 83; RESP 22; O2SAT 98
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
[2022-08-14] MEDS: LORazepam 1 MG TABLET 2 MG PO (04:47)
== END 2022-08-14 04:55 | disposition home or self-care (01) ==
PROVIDERS: Emergency Provider Emergency Medicine Emergency Medical Services
DX: F41.1 Generalized anxiety disorder (principal); F43.0 Acute stress reaction; Z79.899 Other long term (current) drug therapy
CPT/HCPCS: 96374; 99283; 99284

== ENCOUNTER 2022-10-01 08:58 | Emergency (ER) | payer OTHER, SELFPAY ==
--- NOTE | 2022-10-01 09:18 | ED_ITS ---
HPI - General Adult General Stated complaint: constipation Time Seen by Provider: 10/01/22 09:09 Source: patient Mode of arrival: ambulatory Limitations: no limitations History of Present Illness HPI narrative: Patient is a 21-year-old male who presents to emergency department for evaluation of constipation. Reports last normal bowel movement was 5 days ago. Since then he has been having small very formed stools, with straining for bowel movements. He states that he used a single stool softener pill yesterday, and a suppository last night which did not alleviate his constipation. Denies fevers, chills, nausea, vomiting, abdominal pain, hematochezia, melena, genitourinary symptoms. Related Data Previous Rx's Medication Instructions Recorded cephalexin 500 mg capsule 500 mg PO Q8H 7 days #21 caps 05/14/20 doxycycline hyclate 100 mg capsule 100 mg PO BID 10 days #20 caps 05/14/20 hydrocodone 5 mg-acetaminophen 325 1 tab PO Q6H PRN pain #14 tabs 05/14/20 mg tablet ondansetron 4 mg disintegrating 4 mg PO Q8H PRN nausea and 05/14/20 tablet vomiting 5 days #20 tabs amoxicillin 875 mg-potassium 1 tab PO Q12H 7 days #14 tabs 07/10/21 clavulanate 125 mg tablet (Augmentin) albuterol sulfate 90 mcg/actuation 2 puff inhalation Q4-6H PRN 06/12/22 aerosol inhaler shortness of breath or wheezing #6.7 grams azithromycin 250 mg tablet See Rx Instructions PO .COMPLEX #6 06/12/22 tabs magnesium citrate 300 ml PO DAILY PRN constipation 10/01/22 #296 mL polyethylene glycol 3350 17 17 g PO DAILY #119 grams 10/01/22 gram/dose oral powder (Miralax) Allergies Allergy/AdvReac Type Severity Reaction Status Date / Time No Known Allergies Allergy Verified 10/01/22 09:24 Review of Systems Review of Systems: Constitutional : No Weight loss, No Fever, No Chills ENT/Mouth :? No sore throat, No Rhinorrhea Eyes: No Swelling, No Redness Cardiovascular : No Chest Pain, No SOB, No Edema Respiratory : No Cough, No Sputum, No Wheezing Gastrointestinal : No Nausea, no Vomiting, no Diarrhea, no abdominal pain, No Hematochezia, No Melena Genitourinary : No Dysuria, No Urinary Frequency, No Hematuria, No Urgency? Musculoskeletal : No joint pain, No Myalgias, No Joint Swelling Skin : No Skin Lesions, No rash Neuro : No Weakness, No Numbness, No Dizziness, No Headache Psych : No Anxiety/Panic, No Depression Heme/Lymph: No Bruising, No Lymphadenopathy Endocrine : No Polyuria, No Polydipsia Yes all other systems are reviewed and are negative [facility] Past Medical History Attestation statement: The following information was validated with the patient. Source: old records reviewed Medical History Appendicitis Surgical History History of incision and drainage (~04/2020) History of laparoscopic appendectomy (05/05/20) Social History Social History Alcohol intake: never Patient Tobacco Use Status: Current everyday Tobacco user Substance Use Type: Marijuana Physical Exam ED Appearance: Alert.?Oriented to person, place and time. No acute distress.?Normal affect. Eyes: Pupils equal, round and reactive to light.? ENT: Pharynx normal.?? Neck: Normal inspection.? Neck supple.?? CVS: Heart sounds normal. Normal heart rate and rhythm.? Pulses normal.?? Respiratory: No respiratory distress.? Lung sounds clear to auscultation bilaterally?? Abdomen: Soft and non-tender. Normoactive bowel sounds. Rectal: Performed with director of special services, ED semiconductor development technician, Andrea. Single external hemo rrhoid, non thrombosed, no fissures. Skin: Skin warm and dry.? Normal skin color.? Extremities: No lower extremity edema.? Neuro: Moves all extremities spontaneously. Sensation intact bilaterally. Ambulates with normal steady gait. Medical Decision Making Medical Decision Making MDM Narrative: Patient is a 21-year-old male past medical history of appendectomy presenting to emergency department for evaluation of reported constipation. At the time of examination he is overall well appearing, nontoxic. Abdominal examination is benign, no rigidity, no guarding, no peritoneal signs, low suspicion for obstruction, colitis, diverticulitis, rectal mass. Rectal examination reveals a single hemorrhoid, no active bleeding, no fissures, no impacted stool present in the rectal vault. At this time feel the patient is stable for discharge home, advised dietary management of constipation, use of magnesium citrate today, followed by MiraLax daily. Advised outpatient follow-up with primary care provider. Discussed worrisome signs and symptoms of evaluation emergency department, all questions answered. Stable for discharge. Differential Diagnosis Differential Diagnoses: The differential diagnosis associated with the presentation includes (As noted above) External Record Review External record reviewed: Inpatient record and Outpatient record Tests considered The following testing was considered but not selected: CT considered, abdominal examination benign, low suspicion for acute intra- abdominal pathology, CT deferred Prescription Management I considered prescription management with: Other (Laxative) Discharge Plan Discharge Clinical Impression: Constipation Patient Disposition: Home, Self-Care Instructions: Constipation (ED), High Fiber Diet (ED) Additional Instructions: Drink a bottle of magnesium citrate today to facilitate bowel movement. As discussed, you should increase fiber in your diet, starting tomorrow, you may use MiraLax which is a powder substance that will be mixed in to 6-8 oz of water or juice can be used daily to ease bowel movements. Stop the use of this medication if you develop diarrhea. Follow-up with primary care provider as needed for persistent symptoms Return back to emergency department any new or worsening symptoms or concerns. Prescriptions: New polyethylene glycol 3350 [Miralax] 17 gram/dose powder 17 g PO DAILY Qty: 119 0RF magnesium citrate Solution 300 ml PO DAILY PRN (Reason: constipation) Qty: 296 0RF No Action cephalexin 500 mg capsule 500 mg PO Q8H 7 Days Qty: 21 0RF doxycycline hyclate 100 mg capsule 100 mg PO BID 10 Days Qty: 20 0RF hydrocodone-acetaminophen 5-325 mg tablet 1 tab PO Q6H PRN (Reason: pain) Qty: 14 0RF ondansetron 4 mg tablet,disintegrating 4 mg PO Q8H PRN (Reason: nausea and vomiting) 5 Days Qty: 20 0RF azithromycin 250 mg tablet See Rx Instructions .ROUTE .COMPLEX Qty: 6 0RF Rx Instructions: For 250 mg dose pack: take 500 mg today (day 1), then 250 mg for 4 days (days 2-5) albuterol sulfate 90 mcg/actuation HFA aerosol inhaler 2 puff inhalation Q4-6H PRN (Reason: shortness of breath or wheezing) Qty: 6.7 0RF amoxicillin-pot clavulanate [Augmentin] 875-125 mg tablet 1 tab PO Q12H 7 Days Qty: 14 0RF Referrals: Physician,None [Primary Care Provider] -
[2022-10-01 09:21] VITALS: BP 143/81; PULSE 88; RESP 16; TEMP 36.8; O2SAT 99; BMI 35.5
== END 2022-10-01 11:52 | disposition home or self-care (01) ==
PROVIDERS: Emergency Provider Emergency Medicine
DX: K59.00 Constipation, unspecified (principal); F17.200 Nicotine dependence, unspecified, uncomplicated; F12.90 Cannabis use, unspecified, uncomplicated
CPT/HCPCS: 99283; 99284

== ENCOUNTER 2022-11-17 22:08 | Emergency (ER) | payer OTHER, SELFPAY ==
[2022-11-17 22:11] VITALS: BP 122/81; PULSE 119; RESP 20; TEMP 38.1; O2SAT 97; BMI 29.5
[2022-11-17 23:00] LABS: IDNOW Serial# 08D9AD1C; Strep A Nucleic Acid Positive (Negative)
[2022-11-17 23:12] LABS: COVID-19 Test Negative (Negative); IDNOW Serial# 9DB6401D; IDNOW Serial# BCCEAD1C; Influenza A Positive (Negative); Influenza B2 Negative (Negative)
[2022-11-17] MEDS: Acetaminophen 325 MG TABLET 650 MG PO (23:38)
--- NOTE | 2022-11-17 23:43 | ED_ITS ---
HPI - General Adult General Chief complaint: General Medical Stated complaint: sore throat body aches Time Seen by Provider: 11/17/22 23:22 Source: patient Mode of arrival: ambulatory Limitations: no limitations History of Present Illness HPI narrative: 21-year-old male presents with fatigue, malaise, congestion, sore throat, myalgias, subjective fevers and chills, nausea and vomiting since this morning sudden in onset. According to the signficant other has been eating and drinking per usual. No recent sick contacts. Has taken ibuprofen at home with little to no relief. Denies chest pain, shortness of breath, hematemasis, melena, hematochezia, abdominal pain, headache, vision changes. Related Data Previous Rx's Medication Instructions Recorded cephalexin 500 mg capsule 500 mg PO Q8H 7 days #21 caps 05/14/20 doxycycline hyclate 100 mg capsule 100 mg PO BID 10 days #20 caps 05/14/20 hydrocodone 5 mg-acetaminophen 325 1 tab PO Q6H PRN pain #14 tabs 05/14/20 mg tablet ondansetron 4 mg disintegrating 4 mg PO Q8H PRN nausea and 05/14/20 tablet vomiting 5 days #20 tabs amoxicillin 875 mg-potassium 1 tab PO Q12H 7 days #14 tabs 07/10/21 clavulanate 125 mg tablet (Augmentin) albuterol sulfate 90 mcg/actuation 2 puff inhalation Q4-6H PRN 06/12/22 aerosol inhaler shortness of breath or wheezing #6.7 grams azithromycin 250 mg tablet See Rx Instructions PO .COMPLEX #6 06/12/22 tabs magnesium citrate 300 ml PO DAILY PRN constipation 10/01/22 #296 mL polyethylene glycol 3350 17 17 g PO DAILY #119 grams 10/01/22 gram/dose oral powder (Miralax) amoxicillin 875 mg-potassium 1 tab PO BID 10 days #20 tabs 11/17/22 clavulanate 125 mg tablet prednisone 20 mg tablet 40 mg PO DAILY 5 days #10 tabs 11/17/22 ondansetron 4 mg disintegrating 4 mg PO Q6H PRN nausea and 11/18/22 tablet vomiting #14 tabs Allergies Allergy/AdvReac Type Severity Reaction Status Date / Time No Known Allergies Allergy Verified 10/01/22 09:24 Review of Systems Review of Systems: Constitutional : No Weight loss, + Fever, + Chills, + Fatigue, + Malaise ENT/Mouth : No sore throat, No Rhinorrhea Eyes: No Eye Pain, No Swelling, No Redness Cardiovascular : No Chest Pain, No SOB, No Dyspnea on Exertion, No Orthopnea, No Edema, No Palpitations Respiratory : No Cough, No Sputum, No Wheezing Gastrointestinal : + Nausea, + Vomiting, No Diarrhea, No Constipation, No abdominal Pain, No Hematochezia, No Melena Genitourinary : No Dysuria, No Urinary Frequency, No Hematuria, Musculoskeletal : No joint pain, No Myalgias, No Joint Swelling Skin : No Skin Lesions, No rash Neuro : + Weakness, No Numbness, No Dizziness, No Headache Psych : No Anxiety/Panic, No Depression All other systems reviewed and are negative Yes all other systems are reviewed and are negative [facility] Past Medical History Attestation statement: The following information was validated with the patient. Source: old records reviewed and nursing notes reviewed Medical History Appendicitis Surgical History History of incision and drainage (~04/2020) History of laparoscopic appendectomy (05/05/20) Social History Social History Alcohol intake: current Alcohol intake frequency: a few times a month Patient Tobacco Use Status: Current everyday Tobacco user Substance Use Type: Marijuana Advance Directives: No Advance Directives Information Provided: Yes Physical Exam ED Vital Signs: Vital Signs - 24 hr 11/17/22 22:11 Temperature 100.5 F H Pulse Rate 119 H Respiratory Rate 20 Blood Pressure 122/81 Pulse Oximetry 97 Oxygen Delivery Method Room Air BMI result Body Mass Index 29.5 vss Appearance: Alert.? Oriented X3.? No acute distress.? Head: Normocephalic, atraumatic, no step-offs or deformities Eyes: Pupils equal, round and reactive to light.? ENT: Pharynx w/ erythematous tonsils b/l with slight edema, no exudates, uvula midline, no abscess. No pain with manipulation of external ears bilaterally. No mastoid tenderness. Neck: Normal inspection.? Neck supple.? CVS: Normal heart rate and rhythm.? Pulses normal.? Respiratory: No respiratory distress.? Breath sounds normal.? Abdomen: Soft and nontender.?Negative mcburneys point, rosving, murphys sign Skin: Skin warm and dry.? Normal skin color.? Normal skin turgor.? Extremities: No lower extremity edema.? No calf ttp. 5/5 strength to bilateral upper and lower extremities Back: No midline tenderness, no C-spine tenderness, full range of motion, no CVA tenderness bilaterally Neuro: Oriented X 3.? No motor deficit.? No sensory deficit. CN 2-12 intact Course Reevaluation(s) Reevaluation #1: CBC with slight microcytic anemia, platelet count 132, chemistry unremarkable. Transaminases and bilirubin slightly elevated when compared to baseline likely secondary to viral illness. COVID negative. Patient positive for influenza and strep throat. Time: 00:00 Reevaluation #2: CBC was slightly elevated red blood cell count, hemoconcentration likely secondary to dehydration. Patient being hydrated with IV fluids. Patient's chemistry with no acute electrolyte abnormalities requiring intervention. Patient given 1st dose of Augmentin, also given Decadron for swelling of tonsils. No signs of airway compromise. Patient speaking in full sentences controlling secretions well. Will discharge patient home on p.o. antibiotics and steroids. Educated patient on diagnosis and treatment plan, answered all question, patient verbalizes understanding. At this time patient will be discharged home, advised to return with new or worsening symptoms. Educated on worrisome signs and symptoms and when to return. At this time I feel comfortable discharge home. At time of discharge patient tells me he is feeling much better. No longer having nausea or vomiting. Will repeat temperature after he takes ibuprofen. And then he will be discharged home Time: 00:38 Medications Administered Generic Name Dose Route Start Last Admin Trade Name Freq PRN Reason Stop Dose Admin Sodium Chloride 1,000 mls @ 999 mls/hr 11/17/22 23:45 11/18/22 00:06 Ns IV 11/18/22 00:45 999 mls/hr .Q1H1M CESARIO Administration Discontinued Medications Generic Name Dose Route Start Last Admin Trade Name Freq PRN Reason Stop Dose Admin Acetaminophen 650 mg 11/17/22 23:22 11/17/22 23:38 Acetaminophen 325 Mg Tablet PO 11/17/22 23:23 650 mg ONCE ONE Administration Amoxicillin/Clavulanate Potassium 875 mg 11/18/22 00:00 11/18/22 00:08 Amoxicillin/Potassium Clav 875 Mg Tablet PO 11/18/22 00:01 875 mg ONCE ONE Administration Dexamethasone Sodium Phosphate 8 mg 11/17/22 23:49 11/18/22 00:06 Dexamethasone Sod Phosphate 4 Mg/Ml Vial IVPUSH 11/17/22 23:50 8 mg ONCE ONE Administration Medical Decision Making Medical Decision Making [facility] Narrative: 2340 21-year-old male presents with fatigue, malaise, congestion, sore throat, myalgias, subjective fevers and chills, nausea and vomiting since this morning sudden in onset. Physical exam with pharynx w/ erythematous tonsils b/l with slight edema, no exudates, uvula midline, no abscess. No pain with manipulation of external ears bilaterally. No mastoid tenderness. Patient febrile and tachycardic this is likely secondary to viral illness I do not suspect severe sepsis Concerns for viral illness possible strep. No sins of abscess, epiglottitis, retropharyngeal abscess. Unlikely acute abdomen, severe sepsis. Plan viral testing, basic labs, fluids, antipyretics Differential Diagnosis Differential Diagnoses: The differential diagnosis associated with the presentation includes Concerns for viral illness possible strep. No sins of abscess, epiglottitis, retropharyngeal abscess. Unlikely acute abdomen, severe sepsis. Admission/Observation Consideration of admission/observation: Escalation of care including admission/observation considered Unlikely Lab Data [facility] Lab Attestation statement: I reviewed the patient's lab results. 11/17/22 23:56 11/17/22 23:56 Labs: Lab Results 11/17/22 11/17/22 11/17/22 Range/Units 22:46 22:46 22:46 WBC (4.8-10.8) X10*3/uL RBC (4.60-5.80) X10*6/uL Hgb (14.0-18.0) g/dl Hct (42.0-52.0) % MCV (80.0-98.0) fL MCH (27.0-33.0) pg MCHC (31.0-36.0) g/dl RDW (11.0-16.0) % Plt Count (160-400) X10*3/uL MPV (9.4-12.4) fL Immature Gran % (Auto) (0.0-0.4) % Neut % (Auto) (45-73) % Lymph % (Auto) (20-40) % [place] % (Auto) (2-11) % Eos % (Auto) (0-4) % Baso % (Auto) (0-2) % Lymph # (Auto) (1.2-4.9) X10*3/uL [place] # (Auto) (0.1-1.2) X10*3/uL Eos # (Auto) (0.0-0.4) X10*3/uL Baso # (Auto) (0.0-0.2) X10*3/uL Abs Immat Gran (auto) (0.00-0.03) X10*3/uL Absolute Neuts (auto) (2.0-8.3) x10*3/uL Absolute Nucleated RBC (0.0-0.012) X10*3/uL Nucleated RBC % (auto) (0.0-0.2) /100WBC Sodium (135-145) mmol/L Potassium (3.3-5.1) mmol/L Chloride (96-108) mmol/L Carbon Dioxide (22-29) mmol/L Anion Gap (12-20) BUN (9-16) mg/dL Creatinine (0.5-1.4) mg/dL Estim Creat Clear Calc Estimated GFR Random Glucose (60-115) mg/dL Calcium (8.4-10.2) mg/dL Magnesium (1.6-2.6) mg/dL Total Bilirubin (0.0-1.0) mg/dL AST (5-37) U/L ALT (0-40) U/L Alkaline Phosphatase (39-117) U/L Total Protein (6.5-8.0) g/dL Albumin (3.5-5.0) g/dL COVID-19 (GABBY) Negative (Negative) COVID-19 Clin Com See Note Influenza Type A (LUPIS) Positive A (Negative) Influenza Type B (LUPIS) Negative (Negative) Influenza A & B Note See Note S. pyogenes GrpA LUPIS Positive A (Negative) 11/17/22 11/17/22 Range/Units 23:56 23:56 WBC 9.0 (4.8-10.8) X10*3/uL RBC 6.12 H (4.60-5.80) X10*6/uL Hgb 14.8 (14.0-18.0) g/dl Hct 46.4 (42.0-52.0) % MCV 75.8 L (80.0-98.0) fL MCH 24.2 L (27.0-33.0) pg MCHC 31.9 (31.0-36.0) g/dl RDW 14.5 (11.0-16.0) % Plt Count 200 D (160-400) X10*3/uL MPV 10.8 (9.4-12.4) fL Immature Gran % (Auto) 0.6 H (0.0-0.4) % Neut % (Auto) 83.4 H (45-73) % Lymph % (Auto) 5.7 L (20-40) % [place] % (Auto) 9.9 (2-11) % Eos % (Auto) 0.3 (0-4) % Baso % (Auto) 0.1 (0-2) % Lymph # (Auto) 0.5 L (1.2-4.9) X10*3/uL [place] # (Auto) 0.9 (0.1-1.2) X10*3/uL Eos # (Auto) 0.0 (0.0-0.4) X10*3/uL Baso # (Auto) 0.0 (0.0-0.2) X10*3/uL Abs Immat Gran (auto) 0.05 H (0.00-0.03) X10*3/uL Absolute Neuts (auto) 7.5 (2.0-8.3) x10*3/uL Absolute Nucleated RBC 0.000 (0.0-0.012) X10*3/uL Nucleated RBC % (auto) 0.0 (0.0-0.2) /100WBC Sodium 139 (135-145) mmol/L Potassium 4.1 D (3.3-5.1) mmol/L Chloride 107 (96-108) mmol/L Carbon Dioxide 22 (22-29) mmol/L Anion Gap 14 (12-20) BUN 11 (9-16) mg/dL Creatinine 0.86 (0.5-1.4) mg/dL Estim Creat Clear Calc 148.7 Estimated GFR > 60 Random Glucose 104 (60-115) mg/dL Calcium 9.1 (8.4-10.2) mg/dL Magnesium 1.7 (1.6-2.6) mg/dL Total Bilirubin 0.7 (0.0-1.0) mg/dL AST 19 (5-37) U/L ALT 22 (0-40) U/L Alkaline Phosphatase 67 (39-117) U/L Total Protein 6.9 (6.5-8.0) g/dL Albumin 4.3 (3.5-5.0) g/dL COVID-19 (GABBY) (Negative) COVID-19 Clin Com Influenza Type A (LUPIS) (Negative) Influenza Type B (LUPIS) (Negative) Influenza A & B Note S. pyogenes GrpA LUPIS (Negative) Core Measures AMI core measures followed: Yes Measure exclusions: not indicated Critical Care Time Critical Care Time Critical Care Time: No Discharge Plan Discharge Clinical Impression: Strep pharyngitis, Influenza A Patient Disposition: Home, Self-Care Instructions: Pharyngitis (ED), Influenza (ED) Additional Instructions: Take your medications as prescribed. If you were prescribed antibiotics today, it is important that you take your medication to their entirety, do not skip any doses, do not finish them early. Follow-up with your primary care provider this week. Return to the emergency department with new or worsening symptoms. Such as fevers, chills, chest pain, shortness of breath, nausea, vomiting, dizziness, headache, vision changes, lethargy In case of emergency call 911 You can take Ibuprofen every 6 hours Tylenol every 4 hours Prescriptions: New prednisone 20 mg tablet 40 mg PO DAILY 5 Days Qty: 10 0RF amoxicillin-pot clavulanate 875-125 mg tablet 1 tab PO BID 10 Days Qty: 20 0RF ondansetron 4 mg tablet,disintegrating 4 mg PO Q6H PRN (Reason: nausea and vomiting) Qty: 14 0RF No Action cephalexin 500 mg capsule 500 mg PO Q8H 7 Days Qty: 21 0RF doxycycline hyclate 100 mg capsule 100 mg PO BID 10 Days Qty: 20 0RF hydrocodone-acetaminophen 5-325 mg tablet 1 tab PO Q6H PRN (Reason: pain) Qty: 14 0RF ondansetron 4 mg tablet,disintegrating 4 mg PO Q8H PRN (Reason: nausea and vomiting) 5 Days Qty: 20 0RF azithromycin 250 mg tablet See Rx Instructions .ROUTE .COMPLEX Qty: 6 0RF Rx Instructions: For 250 mg dose pack: take 500 mg today (day 1), then 250 mg for 4 days (days 2-5) albuterol sulfate 90 mcg/actuation HFA aerosol inhaler 2 puff inhalation Q4-6H PRN (Reason: shortness of breath or wheezing) Qty: 6.7 0RF polyethylene glycol 3350 [Miralax] 17 gram/dose powder 17 g PO DAILY Qty: 119 0RF magnesium citrate Solution 300 ml PO DAILY PRN (Reason: constipation) Qty: 296 0RF amoxicillin-pot clavulanate [Augmentin] 875-125 mg tablet 1 tab PO Q12H 7 Days Qty: 14 0RF Referrals: Physician,None [Physician] - 2 days Stand Alone Forms: Work/School Release
[2022-11-18 00:01] LABS: MANUAL DIFF FLAG NO
[2022-11-18 00:03] LABS: Basophils Percent Auto 0.1 % (0-2); Eosinophils Percent Auto 0.3 % (0-4); Hematocrit 46.4 % (42.0-52.0); Hemoglobin 14.8 g/dl (14.0-18.0); Imm Gran Abs Auto 0.05 X10*3/uL (0.00-0.03); Imm Gran Pct Auto 0.6 % (0.0-0.4); Lymphocytes Absolute Auto 0.5 X10*3/uL (1.2-4.9); Lymphocytes Percent Auto 5.7 % (20-40); Mean Corpuscular HGB Conc 31.9 g/dl (31.0-36.0); Mean Corpuscular Hemoglobin 24.2 pg (27.0-33.0); Mean Corpuscular Volume 75.8 fL (80.0-98.0); Mean Platelet Volume 10.8 fL (9.4-12.4); Monocytes Absolute Auto 0.9 X10*3/uL (0.1-1.2); Monocytes Percent Auto 9.9 % (2-11); Neutrophils Absolute Auto 7.5 x10*3/uL (2.0-8.3); Neutrophils Percent Auto 83.4 % (45-73); Platelet Count 200 X10*3/uL (160-400); Red Blood Count 6.12 X10*6/uL (4.60-5.80); Red Cell Distribution Width 14.5 % (11.0-16.0)
[2022-11-18] MEDS: dexAMETHasone sod phosphate 4 MG/ML VIAL 8 MG IVPUSH (00:06)
[2022-11-18] MEDS: 0.9 % Sodium Chloride 1,000 ML 999 ML IV (00:06)
[2022-11-18] MEDS: Amoxicillin/Potassium Clav 875 MG TABLET PO (00:08)
[2022-11-18 00:18] LABS: Alanine Aminotransferase 22 U/L (0-40); Albumin Level 4.3 g/dL (3.5-5.0); Alkaline Phosphatase 67 U/L (39-117); Anion Gap 14 (12-20); Aspartate Amino Transferase 19 U/L (5-37); Bilirubin Total 0.7 mg/dL (0.0-1.0); Blood Urea Nitrogen 11 mg/dL (9-16); Calcium 9.1 mg/dL (8.4-10.2); Carbon Dioxide 22 mmol/L (22-29); Chloride 107 mmol/L (96-108); Creatinine Clr Calc Pharmacy 148.7; Estimated Glomerular Filt Rate > 60; Glucose Random 104 mg/dL (60-115); Magnesium 1.7 mg/dL (1.6-2.6); Potassium 4.1 mmol/L (3.3-5.1); Sodium 139 mmol/L (135-145); Total Protein 6.9 g/dL (6.5-8.0)
[2022-11-18] MEDS: Ibuprofen 600 MG TABLET PO (00:49)
[2022-11-18 01:15] VITALS: TEMP 36.9
== END 2022-11-18 01:21 | disposition home or self-care (01) ==
PROVIDERS: Physician Assistant; Emergency Provider Emergency Medicine
DX: J02.0 Streptococcal pharyngitis (principal); J10.1 Influenza due to other identified influenza virus with other respiratory manifestations; M79.10 Myalgia, unspecified site; R50.9 Fever, unspecified; Z20.822 Contact with and (suspected) exposure to COVID-19; Z20.828 Contact with and (suspected) exposure to other viral communicable diseases; Z79.899 Other long term (current) drug therapy
CPT/HCPCS: 36415; 80053; 83735; 85025; 87502; 87635; 87651; 96360; 99283; 99284; J1100

== ENCOUNTER 2023-11-29 10:57 | Emergency (ER) | payer MEDICAID, SELFPAY ==
--- NOTE | ~2023-11-29 | CT_ITS ---
EXAMINATION: CT SOFT TISSUE NECK WITH CONTRAST CLINICAL INFORMATION: Mass in the right lateral neck COMPARISON: None. TECHNIQUE: Following the administration of 60 mL of Omnipaque 350 intravenous contrast, helical imaging was performed in the axial plane with generation of coronal and sagittal reformatted images. This CT examination was performed using dose optimization techniques as appropriate, variously including the following: *Automated exposure control. *Adjustment of mA and/or kV according to patient size (this includes techniques or standardized protocols for targeted exams where dose is matched to indication/reason for exam; i.e. extremities or head). *Use of iterative reconstruction technique. DLP: 764 mGy-cm. FINDINGS: Asymmetric right level 5A lymph nodes, some which are nonpathologically enlarged by size criteria however demonstrate abnormal rounded morphology with a dominant pathologically enlarged right level 5A lymph node measuring 1.7 cm in long axis. Additional enlarged somewhat lobulated right level IIa lymph node measuring 1.5 cm in long axis with possible perinodal fat stranding. Mildly enlarged clustered left medial supraclavicular lymph nodes measuring 1.3 cm in long axis and mildly enlarged right occipital lymph node measuring 1.1 cm in long axis. No source lesion identified within the aerodigestive tract. The fat planes of the skull base and soft tissues of the nasopharynx are unremarkable. Retention cysts within the left greater than right maxillary sinuses. No mastoid effusion. The temporomandibular joints are normal. Partially herniated right sublingual gland into the right submandibular space via mylohyoid boutonniere defect. The remainder of the oral cavity is normal. Symmetric prominence of the palatine tonsils, presumably reactive. Soft tissue along the base of tongue partially effacing the vallecula, presumably lingual tonsillar hyperplasia. The supraglottic and subglottic airway is widely patent. Limited assessment of the glottis due to apposition of the true vocal cords. The submandibular and parotid glands are normal. The thyroid gland is normal. The partially visualized lung apices are clear. Normal opacification of the major neck vessels. The osseous structures are intact without suspicious focal lesion. The imaged portions of the brain parenchyma are unremarkable. CT/CT soft tissue neck w IV con IMPRESSION: Asymmetric right level 5A lymphadenopathy with dominant lymph node measuring 1.7 cm in long axis with additional pathologically enlarged right level 2A, right subdural, and left medial supraclavicular lymph nodes. A dominant enlarged right level 5A lymph node may demonstrate surrounding perineural fat stranding. Findings are nonspecific and may be reactive/inflammatory and can be correlated clinically. Underlying neoplastic processes are not excluded. Recommend attention on follow-up imaging for expected temporal resolution and possible FNA if lymphadenopathy persists or progresses. No source lesion identified within the aerodigestive tract.
[2023-11-29 11:02] VITALS: BP 148/87; PULSE 80; RESP 16; TEMP 36.6; O2SAT 99; BMI 31.9
[2023-11-29 18:21] VITALS: BP 131/81; PULSE 64; RESP 18; TEMP 36.4; O2SAT 99
[2023-11-29 19:36] LABS: MANUAL DIFF FLAG NO
[2023-11-29 19:39] LABS: Basophils Percent Auto 0.4 % (0-2); Eosinophils Absolute Auto 0.1 X10*3/uL (0.0-0.4); Eosinophils Percent Auto 1.2 % (0-4); Hematocrit 47.7 % (42.0-52.0); Hemoglobin 15.5 g/dl (14.0-18.0); Imm Gran Abs Auto 0.02 X10*3/uL (0.00-0.03); Imm Gran Pct Auto 0.4 % (0.0-0.4); Lymphocytes Absolute Auto 1.5 X10*3/uL (1.2-4.9); Lymphocytes Percent Auto 30.6 % (20-40); Mean Corpuscular HGB Conc 32.5 g/dl (31.0-36.0); Mean Corpuscular Hemoglobin 25.7 pg (27.0-33.0); Mean Corpuscular Volume 79.1 fL (80.0-98.0); Mean Platelet Volume 10.6 fL (9.4-12.4); Monocytes Absolute Auto 0.5 X10*3/uL (0.1-1.2); Monocytes Percent Auto 9.9 % (2-11); Neutrophils Absolute Auto 2.9 x10*3/uL (2.0-8.3); Neutrophils Percent Auto 57.5 % (45-73); Platelet Count 201 X10*3/uL (160-400); Red Blood Count 6.03 X10*6/uL (4.60-5.80); Red Cell Distribution Width 14.6 % (11.0-16.0)
--- NOTE | 2023-11-29 19:43 | ED.GENADULT ---
HPI - General Adult General Chief complaint: Skin/Abscess/Foreign Body Stated complaint: swelling on neck ? Time Seen by Provider: 11/29/23 19:05 Source: patient, RN notes reviewed and old records reviewed Mode of arrival: ambulatory Limitations: no limitations History of Present Illness HPI narrative: 22-year-old male who denies any past medical history presents for evaluation of to swollen masses to the right side of his neck. He reports he 1st noticed the symptoms 2 weeks ago. He reports that they have slight discomfort but are not terribly painful. There have been no skin changes such as redness. Patient denies any trauma to the area. He denies any fevers, chills, cough shortness of breath Denies any night sweats or unexplained weight loss Related Data Previous Rx's ?Medication ?Instructions ?Recorded cephalexin 500 mg capsule 500 mg PO Q8H 7 days #21 caps 05/14/20 doxycycline hyclate 100 mg capsule 100 mg PO BID 10 days #20 caps 05/14/20 hydrocodone 5 mg-acetaminophen 325 1 tab PO Q6H PRN pain #14 tabs 05/14/20 mg tablet ondansetron 4 mg disintegrating 4 mg PO Q8H PRN nausea and 05/14/20 tablet vomiting 5 days #20 tabs amoxicillin 875 mg-potassium 1 tab PO Q12H 7 days #14 tabs 07/10/21 clavulanate 125 mg tablet (Augmentin) albuterol sulfate 90 mcg/actuation 2 puff inhalation Q4-6H PRN 06/12/22 aerosol inhaler shortness of breath or wheezing #6.7 grams azithromycin 250 mg tablet See Rx Instructions PO .COMPLEX #6 06/12/22 tabs magnesium citrate 300 ml PO DAILY PRN constipation 10/01/22 #296 mL polyethylene glycol 3350 17 17 g PO DAILY #119 grams 10/01/22 gram/dose oral powder (Miralax) amoxicillin 875 mg-potassium 1 tab PO BID 10 days #20 tabs 11/17/22 clavulanate 125 mg tablet prednisone 20 mg tablet 40 mg (2 x 20 mg) PO DAILY 5 days 11/17/22 #10 tabs ondansetron 4 mg disintegrating 4 mg PO Q6H PRN nausea and 11/18/22 tablet vomiting #14 tabs cephalexin 500 mg capsule 500 mg PO QID #28 caps 11/29/23 Allergies Allergy/AdvReac Type Severity Reaction Status Date / Time No Known Allergies Allergy Verified 11/29/23 11:03 Review of Systems Constitutional: Constitutional: Denies anorexia, Denies body ache(s) and Denies fever(s) ENT: Reports neck mass and Denies sore throat Cardiovascular: Cardiovascular: Denies chest pain and Denies dyspnea Respiratory: Respiratory: Denies cough and Denies dyspnea Gastrointestinal: Gastrointestinal: Denies abdominal pain Musculoskeletal: Musculoskeletal: Denies back pain Hematologic/Lymphatic: Hematologic/Lymphatic: Reports lymphadenopathy PMFSH Past Medical History Medical History Appendicitis Surgical History History of incision and drainage (~04/2020) History of laparoscopic appendectomy (05/05/20) Social History Social History Alcohol intake: current Alcohol intake frequency: a few times a week Alcohol type: beer and hard liquor Patient Tobacco Use Status: Current everyday Tobacco user Smoked in Last 30 Days: Yes Use of substances other than those prescribed or required for medical reasons: Yes Substance Use Type: Marijuana Advance Directives: No Advance Directives Information Provided: No Physical Exam ED Vital Signs: Vital Signs - 24 hr 11/29/23 11:02 11/29/23 18:21 11/29/23 21:18 Temperature 97.8 F 97.6 F 98 F Pulse Rate 80 64 83 Respiratory Rate 16 18 16 Blood Pressure 148/87 H 131/81 148/81 H Pulse Oximetry 99 99 100 Oxygen Delivery Method Room Air Room Air Room Air BMI result Body Mass Index 31.9 Const General: healthy appearing, comfortable, no acute distress, alert and awake Nutritional Appearance: well nourished Orientation/consciousness: patient oriented x3 HENMT Head: Yes normocephalic and Yes atraumatic Throat: Yes posterior oropharynx normal Eyes Eyelids: Yes eyelids normal Conjunctivae: conjunctivae normal Sclerae: sclerae normal Corneas: corneas normal Pupils: Equal, round and reactive pupils present EOM: EOMs intact bilaterally Neck Other: Patient has 2 firm, round, well-circumscribed, non old masses to the right side of the neck. There in the area of the anterior cervical chain lymph nodes. The more superior masses about 2 cm in diameter and the 1 slightly inferior is up to 4 cm in diameter. Neck: Yes full ROM Resp Effort & Inspection: normal respiratory effort, able to speak in complete sentences, no audible wheezes and not labored Auscultation: clear to auscultation bilaterally Skin General skin exam: elasticity normal Neuro General: patient oriented x3 Cranial nerves: Yes Equal, round and reactive pupils present and Yes Bilaterally intact EOM present Cognition (Neuro): normal cognition Extrem Other: Moving all extremities well without any obvious deformities Course Reevaluation(s) Reevaluation #1: Discussed CT scan results with the patient. Will discharge the patient with a course of cephalexin for any potential reactive lymphadenopathy. The patient will also be referred to Dr. Robertson or any follow-up and possible fine-needle aspiration Time: 21:42 Medications Administered Discontinued Medications Generic Name Dose Route Start Last Admin Trade Name Freq PRN Reason Stop Dose Admin Iohexol 100 ml 11/29/23 20:12 11/29/23 20:12 Iohexol 350 Mg/Ml 100 Ml Infus..Btl IV 11/29/23 20:13 60 ml ONCE ONE Administration Medical Decision Making Medical Decision Making [facility] Narrative: 22-year-old healthy male presents for evaluation of 2 masses in the right side of his neck. Physical exam is most consistent with enlarged lymph nodes. Less likely to be abscess, seroma, lipoma. Plan for labs to check CBC and differential. Will get a CT scan of the neck with IV contrast to better evaluate Differential Diagnosis Differential Diagnoses: The differential diagnosis associated with the presentation includes Lymphadenopathy Lymphoma Abscess Lipoma Lab Data [facility] Lab Attestation statement: I reviewed the patient's lab results. No leukocytosis or anemia. Normal platelet count. 11/29/23 19:34 11/29/23 19:34 Labs: Lab Results 11/29/23 Range/Units 19:34 WBC 5.0 (4.8-10.8) X10*3/uL RBC 6.03 H (4.60-5.80) X10*6/uL Hgb 15.5 (14.0-18.0) g/dl Hct 47.7 (42.0-52.0) % MCV 79.1 L (80.0-98.0) fL MCH 25.7 L (27.0-33.0) pg MCHC 32.5 (31.0-36.0) g/dl RDW 14.6 (11.0-16.0) % Plt Count 201 (160-400) X10*3/uL MPV 10.6 (9.4-12.4) fL Immature Gran % (Auto) 0.4 (0.0-0.4) % Neut % (Auto) 57.5 (45-73) % Lymph % (Auto) 30.6 (20-40) % [place] % (Auto) 9.9 (2-11) % Eos % (Auto) 1.2 (0-4) % Baso % (Auto) 0.4 (0-2) % Lymph # (Auto) 1.5 (1.2-4.9) X10*3/uL [place] # (Auto) 0.5 (0.1-1.2) X10*3/uL Eos # (Auto) 0.1 (0.0-0.4) X10*3/uL Baso # (Auto) 0.0 (0.0-0.2) X10*3/uL Abs Immat Gran (auto) 0.02 (0.00-0.03) X10*3/uL Absolute Neuts (auto) 2.9 (2.0-8.3) x10*3/uL Absolute Nucleated RBC 0.000 (0.0-0.012) X10*3/uL Nucleated RBC % (auto) 0.0 (0.0-0.2) /100WBC Sodium 140 (135-145) mmol/L Potassium 4.4 (3.3-5.1) mmol/L Chloride 106 (96-108) mmol/L Carbon Dioxide 28 (22-29) mmol/L Anion Gap 10 L (12-20) BUN 8 L (9-16) mg/dL Creatinine 0.94 (0.5-1.4) mg/dL Estim Creat Clear Calc 135.6 Estimated GFR > 60 Random Glucose 95 (60-115) mg/dL Calcium 9.6 (8.4-10.2) mg/dL Independent Interpretation I performed an independent interpretation of an: CT Scan Interpretation: Multiple enlarged lymph nodes in the right anterior cervical chain Radiology Impression Discussion of test interpretation with radiology: I have reviewed the radiologist's reading. Radiologist Impression: IMPRESSION: Asymmetric right level 5A lymphadenopathy with dominant lymph node measuring 1.7 cm in long axis with additional pathologically enlarged right level 2A, right subdural, and left medial supraclavicular lymph nodes. A dominant enlarged right level 5A lymph node may demonstrate surrounding perineural fat stranding. Findings are nonspecific and may be reactive/inflammatory and can be correlated clinically. Underlying neoplastic processes are not excluded. Recommend attention on follow-up imaging for expected temporal resolution and possible FNA if lymphadenopathy persists or progresses. No source lesion identified within the aerodigestive tract. Discharge Plan Discharge Clinical Impression: Cervical lymphadenopathy Patient Disposition: Home, Self-Care Instructions: Lymphadenopathy (ED) Additional Instructions: There was no clear source of your swollen lymph nodes. You do have multiple swollen lymph nodes in the right side of the neck. Take cephalexin 4 times daily for 1 week I also recommend that you follow-up with Dr. Robertson who is a public health representative specialist. You may require a fine-needle aspiration which is a biopsy of the lymph nodes Prescriptions: New cephalexin 500 mg capsule 500 mg PO QID Qty: 28 0RF No Action cephalexin 500 mg capsule 500 mg PO Q8H 7 Days Qty: 21 0RF doxycycline hyclate 100 mg capsule 100 mg PO BID 10 Days Qty: 20 0RF hydrocodone-acetaminophen 5-325 mg tablet 1 tab PO Q6H PRN (Reason: pain) Qty: 14 0RF ondansetron 4 mg tablet,disintegrating 4 mg PO Q8H PRN (Reason: nausea and vomiting) 5 Days Qty: 20 0RF azithromycin 250 mg tablet See Rx Instructions .ROUTE .COMPLEX Qty: 6 0RF Rx Instructions: For 250 mg dose pack: take 500 mg today (day 1), then 250 mg for 4 days (days 2-5) albuterol sulfate 90 mcg/actuation HFA aerosol inhaler 2 puff inhalation Q4-6H PRN (Reason: shortness of breath or wheezing) Qty: 6.7 0RF polyethylene glycol 3350 [Miralax] 17 gram/dose powder 17 g PO DAILY Qty: 119 0RF magnesium citrate Solution 300 ml PO DAILY PRN (Reason: constipation) Qty: 296 0RF amoxicillin-pot clavulanate [Augmentin] 875-125 mg tablet 1 tab PO Q12H 7 Days Qty: 14 0RF prednisone 20 mg tablet 40 mg PO DAILY 5 Days Qty: 10 0RF amoxicillin-pot clavulanate 875-125 mg tablet 1 tab PO BID 10 Days Qty: 20 0RF ondansetron 4 mg tablet,disintegrating 4 mg PO Q6H PRN (Reason: nausea and vomiting) Qty: 14 0RF Referrals: Sonam Robertson MD [Physician] - (Multiple enlarged cervical lymph nodes) Print Language: Slovenian
[2023-11-29 19:50] LABS: Anion Gap 10 (12-20); Blood Urea Nitrogen 8 mg/dL (9-16); Calcium 9.6 mg/dL (8.4-10.2); Carbon Dioxide 28 mmol/L (22-29); Chloride 106 mmol/L (96-108); Creatinine Clr Calc Pharmacy 135.6; Estimated Glomerular Filt Rate > 60; Glucose Random 95 mg/dL (60-115); Potassium 4.4 mmol/L (3.3-5.1); Sodium 140 mmol/L (135-145)
[2023-11-29] MEDS: iohexoL 350 MG/ML 100 ML INFUS..BTL IV (20:12)
[2023-11-29 21:18] VITALS: BP 148/81; PULSE 83; RESP 16; TEMP 36.6; O2SAT 100
[2023-11-29 21:49] VITALS: BP 148/81; PULSE 83; RESP 16; TEMP 36.6; O2SAT 100
== END 2023-11-29 21:52 | disposition home or self-care (01) ==
PROVIDERS: Physician Assistant; Emergency Provider Emergency Medicine
DX: R22.1 Localized swelling, mass and lump, neck (principal); M54.2 Cervicalgia; Z79.899 Other long term (current) drug therapy
CPT/HCPCS: 36415; 70491; 80048; 85025; 99284; Q9967

== ENCOUNTER 2025-01-26 11:17 | Emergency (ER) | payer SELFPAY ==
[2025-01-26] VITALS (7 sets, daily range): BP systolic 115–135; BP diastolic 66–80; PULSE 59–92; RESP 16–18; TEMP -17.7–36.3; O2SAT 97–100; BMI 36.5
--- NOTE | 2025-01-26 11:53 | ED_ITS ---
HPI - Nausea/Vomiting/Diarrhea General Chief complaint: Nausea/Vomiting/Diarrhea Stated complaint: light headed and vomitting Time Seen by Provider: 01/26/25 12:08 Source: patient and RN notes reviewed Mode of arrival: ambulatory Limitations: no limitations History of Present Illness ED Provider: Tari Marks PA-C HPI Narrative: This is a 24-year-old male, with no known medical problems, who presents emergency department with concerns of lightheadedness, and nausea which started this morning with the associated abdominal pain. Patient states that at approximately 2:00 a.m. he had a [employer] egg and cheese sandwich. He states that he fell asleep shortly after an awoke this morning feeling lightheaded, nauseous, with abdominal cramping. Patient reports that he did have slight constipation this morning, states that he was able to have a bowel movement, with no bloody or black stool. No vomiting. No fevers or chills. No chest pain or shortness of breath. No urinary symptoms. Denies any known sick contacts. No recent travel or antibiotic use. No other complaints or concerns at this time. MD elicited complaint: nausea and abdominal pain Onset (ago): hour(s) Associated nausea: Yes Associated abdominal pain: Yes Location of pain: epigastric Pain consistency: constant Quality: aching Exacerbating factors: none Relieving factors: none Context: possible food poisoning Associated symptoms: denies other symptoms Related Data Previous Rx's ?Medication ?Instructions ?Recorded cephalexin 500 mg capsule 500 mg PO Q8H 7 days #21 caps 05/14/20 doxycycline hyclate 100 mg capsule 100 mg PO BID 10 days #20 caps 05/14/20 hydrocodone 5 mg-acetaminophen 325 1 tab PO Q6H PRN pain #14 tabs 05/14/20 mg tablet ondansetron 4 mg disintegrating 4 mg PO Q8H PRN nausea and 05/14/20 tablet vomiting 5 days #20 tabs amoxicillin 875 mg-potassium 1 tab PO Q12H 7 days #14 tabs 07/10/21 clavulanate 125 mg tablet (Augmentin) albuterol sulfate 90 mcg/actuation 2 puff inhalation Q4-6H PRN 06/12/22 aerosol inhaler shortness of breath or wheezing #6.7 grams azithromycin 250 mg tablet See Rx Instructions PO .COMPLEX #6 06/12/22 tabs magnesium citrate 300 ml PO DAILY PRN constipation 10/01/22 #296 mL polyethylene glycol 3350 17 17 g PO DAILY #119 grams 10/01/22 gram/dose oral powder (Miralax) amoxicillin 875 mg-potassium 1 tab PO BID 10 days #20 tabs 11/17/22 clavulanate 125 mg tablet prednisone 20 mg tablet 40 mg (2 x 20 mg) PO DAILY 5 days 11/17/22 #10 tabs ondansetron 4 mg disintegrating 4 mg PO Q6H PRN nausea and 11/18/22 tablet vomiting #14 tabs cephalexin 500 mg capsule 500 mg PO QID #28 caps 11/29/23 ondansetron 4 mg disintegrating 4 mg PO Q6H PRN nausea and 01/26/25 tablet vomiting #10 tabs Allergies Allergy/AdvReac Type Severity Reaction Status Date / Time No Known Allergies Allergy Verified 01/26/25 11:46 Review of Systems 2 Review of Systems: Yes all other systems are reviewed and are negative Constitutional: Constitutional: Reports as per HPI Gastrointestinal: Gastrointestinal: Reports nausea PMFSH Past Medical History Medical History Appendicitis Surgical History History of incision and drainage (~04/2020) History of laparoscopic appendectomy (05/05/20) Social History Social History Alcohol intake: current Alcohol intake frequency: a few times a week Alcohol type: beer and hard liquor Patient Tobacco Use Status: Current everyday Tobacco user Substance Use Type: Marijuana Advance Directives: No Advance Directives Information Provided: Yes Do you have a plan to hurt others: No Plan Physical Exam 2 Vital Signs: Vital Signs: Last Vital Signs Temp 0 F L 01/26/25 15:14 Pulse 60 01/26/25 15:14 Resp 16 01/26/25 15:14 BP 115/66 01/26/25 15:14 Pulse Ox 100 01/26/25 15:14 O2 Del Method Room Air 01/26/25 15:14 BMI result Body Mass Index 36.5 Const: General: cooperative, comfortable and no acute distress O rientation/consciousness: patient oriented x3 Limitations: no limitations HEENT: Head: Yes normal to inspection, Yes normocephalic and Yes atraumatic Ears: hearing grossly normal bilaterally General nose exam: Normal external nose present Face and sinus: Yes normal facial exam Mouth: Normal oral and palatal mucosa present, oropharynx normal and moist mucous membranes Throat: Yes posterior oropharynx normal Eyes: General: appearance normal, both eyes and all related structures E yelids: Yes eyelids normal Conjunctivae: conjunctivae normal Sclerae: s clerae normal Pupils: Equal, round and reactive pupils present EOM: EOMs intact bilaterally Neck: Neck: Yes normal visual inspection, Yes full ROM and Yes no lymphadenopathy Lymphatic: no lymphadenopathy noted Chest: Chest palpation & inspection: normal inspection of the chest Resp: Effort & Inspection: normal respiratory effort and able to speak in complete sentences Auscultation: clear to auscultation bilaterally, no crackles, no rales, no rhonchi and no wheezes Cardio: Rate: regular rate Rhythm: regular rhythm Heart sounds: S1 normal heart sound present and S2 normal heart sound present GI: Other: Abdomen is soft with tenderness to palpation in the epigastrium. No rebound or guarding. No right upper quadrant pain. No lower abdominal pain. Inspection: Yes normal to inspection Skin: General skin exam: no rashes or lesions noted Trauma: no lacerations or abrasions Wounds: no wounds Neuro: General: patient oriented x3 and moves all extremities Cranial nerves: Yes Equal, round and reactive pupils present Extrem: General: Yes normal to inspection Right upper extremity: normal to inspection Left upper extremity: normal to inspection Right lower extremity: normal to inspection Left lower extremity: normal to inspection Course Course Course Narrative: Shirley DURAN This is a rapid medical exam. Deferred additional HPI, ROS, PE to primary provider. 24 yo male here with nausea, generalized abdominal cramping, feels lightheaded. No diarrhea/vomiting. Will obtain viral testing, give SL zofran VSS Medications Administered Discontinued Medications Generic Name Dose Route Start Last Admin Trade Name Freq PRN Reason Stop Dose Admin Lactated Ringer's 1,000 mls @ 999 mls/hr 01/26/25 12:14 01/26/25 13:30 Lr IV 01/26/25 13:14 Infused .Q1H1M ONE Infusion Ondansetron HCl 4 mg 01/26/25 12:14 01/26/25 12:26 Ondansetron Hcl 4 Mg/2 Ml Vial IVPUSH 01/26/25 12:15 4 mg ONCE ONE Administration Medical Decision Making Medical Decision Making [facility] Narrative: This is a 24-year-old male who presents emergency department presents emergency department with concerns of nausea and lightheadedness with associated abdominal cramping which started this morning. Reported episode of constipation as well, did have a normal bowel movement afterwards. On arrival, vital signs within normal limits. He is speaking in full sentences under no acute distress. Abdomen is soft with mild tenderness to palpation in the epigastrium. Will obtain basic labs, UA, medicate with IV fluids and IV Zofran. We will continue to closely monitor. >> patient received 1 L of IV fluids, as well as IV Zofran. He states that he is feeling well, symptoms have resolved. Labs returned, he has no leukocytosis, stable H&H, no significant electrolyte derangement. Negative COVID, flu, RSV. Patient able to eat and drink without difficulty. Discussed with patient that symptoms may be secondary to possible food borne exposure, advised patient to stick to a bland diet over several days, discharged with course of Zofran to be used only as needed. Given strict return precautions. Patient feeling much better, stable for discharge. Differential Diagnosis Differential Diagnoses: The differential diagnosis associated with the presentation includes Possible food poisoning, gastritis, GERD, gastroenteritis, viral illness, electrolyte derangement Admission/Observation Consideration of admission/observation: Escalation of care including admission/observation considered Lab Data [facility] Lab Attestation statement: I reviewed the patient's lab results. See MDM and course 01/26/25 12:23 01/26/25 12:23 Labs: Lab Results 01/26/25 01/26/25 Range/Units 12:07 12:23 WBC 6.3 (4.8-10.8) X10*3/uL RBC 5.95 H (4.60-5.80) X10*6/uL Hgb 15.3 (14.0-18.0) g/dl Hct 46.1 (42.0-52.0) % MCV 77.5 L (80.0-98.0) fL MCH 25.7 L (27.0-33.0) pg MCHC 33.2 (31.0-36.0) g/dl RDW 14.1 (11.0-16.0) % Plt Count 231 (160-400) X10*3/uL MPV 10.7 (9.4-12.4) fL Immature Gran % (Auto) 0.8 H (0.0-0.4) % Neut % (Auto) 61.8 (45-73) % Lymph % (Auto) 24.7 (20-40) % [place] % (Auto) 9.1 (2-11) % Eos % (Auto) 3.3 (0-4) % Baso % (Auto) 0.3 (0-2) % Lymph # (Auto) 1.6 (1.2-4.9) X10*3/uL [place] # (Auto) 0.6 (0.1-1.2) X10*3/uL Eos # (Auto) 0.2 (0.0-0.4) X10*3/uL Baso # (Auto) 0.0 (0.0-0.2) X10*3/uL Abs Immat Gran (auto) 0.05 H (0.00-0.03) X10*3/uL Absolute Neuts (auto) 3.9 (2.0-8.3) x10*3/uL Absolute Nucleated RBC 0.000 (0.0-0.012) X10*3/uL Nucleated RBC % (auto) 0.0 (0.0-0.2) /100WBC Sodium 144 (135-145) mmol/L Potassium 4.7 (3.3-5.1) mmol/L Chloride 109 H (96-108) mmol/L Carbon Dioxide 27 (22-29) mmol/L Anion Gap 13 (12-20) BUN 13 (9-16) mg/dL Creatinine 1.02 (0.5-1.4) mg/dL Estim Creat Clear Calc 131.3 Estimated GFR > 60 Random Glucose 93 (60-115) mg/dL Calcium 9.3 (8.4-10.2) mg/dL Magnesium 2.0 (1.6-2.6) mg/dL Total Bilirubin 0.6 (0.0-1.0) mg/dL Direct Bilirubin 0.2 (0.0-0.5) mg/dL AST 30 (5-37) U/L ALT 26 (0-40) U/L Alkaline Phosphatase 63 (39-117) U/L Total Protein 7.2 (6.5-8.0) g/dL Albumin 4.5 (3.5-5.0) g/dL Lipase 13 (8-78) U/L Influenza Type A (PCR) NEGATIVE (Negative) Influenza Type B (PCR) NEGATIVE (Negative) RSV RNA Qual (PCR) NEGATIVE (Negative) SARS-CoV-2 RNA (RT-PCR) NEGATIVE (Negative) Discharge Plan Discharge Clinical Impression: Nausea and vomiting Patient Disposition: Home, Self-Care Instructions: Acute Nausea and Vomiting (ED) Additional Instructions: You were seen in the emergency department due to nausea. You may have consumed something that caused you to feel the way that you feel. Stick to a bland diet, avoid spicy, fried, or acidic foods over the next couple of days. Bananas, rice, applesauce, toast can help with your symptoms. If any new or worsening symptoms occur including but not limited to severe chest pain, shortness of breath, please seek emergent care. Prescriptions: New ondansetron 4 mg tablet,disintegrating 4 mg PO Q6H PRN (Reason: nausea and vomiting) Qty: 10 0RF No Action cephalexin 500 mg capsule 500 mg PO Q8H 7 Days Qty: 21 0RF doxycycline hyclate 100 mg capsule 100 mg PO BID 10 Days Qty: 20 0RF hydrocodone-acetaminophen 5-325 mg tablet 1 tab PO Q6H PRN (Reason: pain) Qty: 14 0RF ondansetron 4 mg tablet,disintegrating 4 mg PO Q8H PRN (Reason: nausea and vomiting) 5 Days Qty: 20 0RF azithromycin 250 mg tablet See Rx Instructions .ROUTE .COMPLEX Qty: 6 0RF Rx Instructions: For 250 mg dose pack: take 500 mg today (day 1), then 250 mg for 4 days (days 2-5) albuterol sulfate 90 mcg/actuation HFA aerosol inhaler 2 puff inhalation Q4-6H PRN (Reason: shortness of breath or wheezing) Qty: 6.7 0RF polyethylene glycol 3350 [Miralax] 17 gram/dose powder 17 g PO DAILY Qty: 119 0RF magnesium citrate Solution 300 ml PO DAILY PRN (Reason: constipation) Qty: 296 0RF amoxicillin-pot clavulanate [Augmentin] 875-125 mg tablet 1 tab PO Q12H 7 Days Qty: 14 0RF cephalexin 500 mg capsule 500 mg PO QID Qty: 28 0RF prednisone 20 mg tablet 40 mg PO DAILY 5 Days Qty: 10 0RF amoxicillin-pot clavulanate 875-125 mg tablet 1 tab PO BID 10 Days Qty: 20 0RF ondansetron 4 mg tablet,disintegrating 4 mg PO Q6H PRN (Reason: nausea and vomiting) Qty: 14 0RF Stand Alone Forms: Work/School Release Interventions: ED Discharge Assessment Last Done: 01/26/25 15:14 Discharge Date/Time: 01/26/25 15:14 Print Language: Wolof
[2025-01-26] MEDS: Lactated Ringers 1,000 ML 999 ML IV (12:25)
[2025-01-26] MEDS: ondansetron HCL 4 MG/2 ML VIAL IVPUSH (12:26)
[2025-01-26 12:28] LABS: MANUAL DIFF FLAG NO
[2025-01-26 12:30] LABS: Basophils Percent Auto 0.3 % (0-2); Eosinophils Absolute Auto 0.2 X10*3/uL (0.0-0.4); Eosinophils Percent Auto 3.3 % (0-4); Hematocrit 46.1 % (42.0-52.0); Hemoglobin 15.3 g/dl (14.0-18.0); Imm Gran Abs Auto 0.05 X10*3/uL (0.00-0.03); Imm Gran Pct Auto 0.8 % (0.0-0.4); Lymphocytes Absolute Auto 1.6 X10*3/uL (1.2-4.9); Lymphocytes Percent Auto 24.7 % (20-40); Mean Corpuscular HGB Conc 33.2 g/dl (31.0-36.0); Mean Corpuscular Hemoglobin 25.7 pg (27.0-33.0); Mean Corpuscular Volume 77.5 fL (80.0-98.0); Mean Platelet Volume 10.7 fL (9.4-12.4); Monocytes Absolute Auto 0.6 X10*3/uL (0.1-1.2); Monocytes Percent Auto 9.1 % (2-11); Neutrophils Absolute Auto 3.9 x10*3/uL (2.0-8.3); Neutrophils Percent Auto 61.8 % (45-73); Platelet Count 231 X10*3/uL (160-400); Red Blood Count 5.95 X10*6/uL (4.60-5.80); Red Cell Distribution Width 14.1 % (11.0-16.0); White Blood Count 6.3 X10*3/uL (4.8-10.8)
[2025-01-26 12:43] LABS: Alanine Aminotransferase 26 U/L (0-40); Albumin Level 4.5 g/dL (3.5-5.0); Alkaline Phosphatase 63 U/L (39-117); Anion Gap 13 (12-20); Aspartate Amino Transferase 30 U/L (5-37); Bilirubin Direct 0.2 mg/dL (0.0-0.5); Bilirubin Total 0.6 mg/dL (0.0-1.0); Blood Urea Nitrogen 13 mg/dL (9-16); Calcium 9.3 mg/dL (8.4-10.2); Carbon Dioxide 27 mmol/L (22-29); Chloride 109 mmol/L (96-108); Creatinine Clr Calc Pharmacy 131.3; Estimated Glomerular Filt Rate > 60; Glucose Random 93 mg/dL (60-115); Lipase 13 U/L (8-78); Potassium 4.7 mmol/L (3.3-5.1); Sodium 144 mmol/L (135-145); Total Protein 7.2 g/dL (6.5-8.0)
[2025-01-26 12:53] LABS: Influenza A PCR NEGATIVE (Negative); Influenza B PCR NEGATIVE (Negative); Resp Syncy Virus RNA Qual PCR NEGATIVE (Negative); SARS COV2 PCR INHOUSE NEGATIVE (Negative)
== END 2025-01-26 15:14 | disposition home or self-care (01) ==
PROVIDERS: Nurse Practitioner Family; Physician Assistant Medical; Emergency Provider Emergency Medicine
DX: R11.2 Nausea with vomiting, unspecified (principal); R42 Dizziness and giddiness; Z03.818 Encounter for observation for suspected exposure to other biological agents ruled out; F17.200 Nicotine dependence, unspecified, uncomplicated; F12.90 Cannabis use, unspecified, uncomplicated; Z79.899 Other long term (current) drug therapy
CPT/HCPCS: 0241U; 36415; 80048; 80076; 83690; 83735; 85025; 96361; 96374; 99284; J2405; J7120